=== PATIENT | female | born 1935 | race Caucasian/White ===

== ENCOUNTER 2017-03-24 10:53 | Inpatient (IN) | payer OTHER, MEDICARE ==
[2017-03-24] VITALS (13 sets, daily range): BP systolic 110–191; BP diastolic 54–81; PULSE 63–174; RESP 12–28; TEMP 97.9–98.7; O2SAT 95–99
[~2017-03-24] VITALS: Ht 165.1 cm; Wt 63.9 kg
[~2017-03-24 10:53] MED LIST: AMLO5TAB96 PO; FISH1000 PO; FLUTI44I INH; GABA300C3 PO; HYDR-2768 PO; LEVA250T14 PO; LEVO75TA3 PO; NADO80TA PO; POTA10IN2 PO
[2017-03-24] MEDS ORDERED: SODIUM CHLOR 0.9% 1000 ML INJ 1,000 ML IV ONE (11:00)
[2017-03-24] MEDS ORDERED: SODIUM CHLORIDE 0.9% FLUSH 10 ML FLUSH IVF PRN (11:00)
--- NOTE | 2017-03-24 11:09 | PD ---
HPI Chief Complaint: Syncope/Near-Syncope Time Seen by Provider: 11:00 Travel History International Travel<30 days: No Contact w/Intl Traveler<30days: No Traveled to known affect area: No History of Present Illness HPI The patient is a 82-year-old female who presents to the emergency department via EMS from the [place] after a syncopal episode and for possible STEMI. EMS called a STEMI in the field because the patient had a left bundle branch block. The patient apparently was at work earlier today, working as a cashier receptionist, when she suddenly froze and he fell to the ground. EMS states the patient apparently had an LOC of 30 seconds. When she awakened she was slightly confused but recovered quickly. The patient does not recall the events , does complain of a mild headache where she struck her head. She denies any neck pain, chest pain, shortness of breath, nausea, vomiting, or focal deficits. The patient cannot recall the name of her primary physician. She denies any known history of CAD and denies any previous MD. She is unsure if she has a history of left bundle-branch block. Symptoms are moderate, there are no current alleviating or exacerbating factors. PFSH Past Medical History Arthritis: Yes Asthma: Yes (MILD) Autoimmune Disease: No Anxiety: No Depression: No Heart Rhythm Problems: Yes (TRANSIENT TACHY) Cancer: Yes (JOCELIN. BREAST) Cardiovascular Problems: Yes Chemotherapy: Yes COPD: Yes Diabetes: No Diminished Hearing: No Endocrine: Yes GERD: Yes (MILD) Glaucoma: No Genitourinary: Yes (CURRENT UTI) Hypertension: Yes Immune Disorder: No Musculoskeletal: Yes Neurologic: Yes Psychiatric: No Respiratory: Yes Immunizations Current: Yes Radiation Therapy: Yes (25X 1987, 35X 1995) Thyroid Disease: Yes Past Surgical History Body Medical Devices: HARDWARE RIGHT FEMUR, HIP Pacemaker: No Social History Alcohol Use: Yes (1GLASS WINE Q 3 MONTHS ) Tobacco Use: No Substance Use: No Allergies-Medications (Allergen,Severity, Reaction): Coded Allergies: adhesive (Unverified Allergy, Severe, 03/24/17) enalaprilat (Unverified Allergy, Severe, PERIORAL SWELLING, 03/24/17) latex (Unverified Allergy, Severe, RASH, 03/24/17) codeine (Unverified Allergy, Mild, NAUSEA/VOMITING, PER PT, 03/24/17) etodolac (Unverified Allergy, Unknown, 03/24/17) Reported Meds & Prescriptions Reported Meds & Active Scripts Active Reported Zocor (Simvastatin) 20 Mg Tab 20 Mg PO DAILY Baclofen 10 Mg Tab 10 Mg PO BID Cozaar (Losartan Potassium) 100 Mg Tab 100 Mg PO DAILY Synthroid (Levothyroxine Sodium) 50 Mcg Tab 50 Mcg PO DAILY Norvasc (Amlodipine Besylate) 10 Mg Tab 10 Mg PO DAILY Review of Systems Except as stated in HPI: all other systems reviewed are Neg General / Constitutional: No: Fever HENT: Positive: Headaches, No: Lightheadedness, Neck Pain Cardiovascular: Positive: Syncope, No: Chest Pain or Discomfort Respiratory: No: Shortness of Breath Gastrointestinal: No: Nausea, Vomiting, Abdominal Pain Musculoskeletal: No: Weakness Neurologic: Positive: Syncope, No: Dizziness Physical Exam Narrative GENERAL: Awake, alert, pleasant 82-year-old female who appears her stated age and is in no acute respiratory distress. SKIN: Focused skin assessment warm/dry. Laceration to the right occipital region. HEAD: The patient has a laceration to the right occipital region. EYES: Pupils equal and round. 3 mm bilateral and reactive. ENT: No nasal bleeding or discharge. Mucous membranes pink and moist. NECK: Trachea midline. No JVD. Cervical collar in place. CARDIOVASCULAR: Regular rate and rhythm. No murmur appreciated. Heart rate in the 80s. RESPIRATORY: No accessory muscle use. Clear to auscultation. Breath sounds equal bilaterally. GASTROINTESTINAL: Abdomen soft, non-tender, nondistended. No rebound tenderness. MUSCULOSKELETAL: No obvious deformities. No clubbing. No cyanosis. No edema. Moves all 4 extremities without difficulty. NEUROLOGICAL: Awake and alert. No obvious cranial nerve deficits. Motor grossly within normal limits. Normal speech. Nonfocal. Oriented 4. Follows commands without difficulty. Back: No tenderness over the thoracic lumbar vertebrae. PSYCHIATRIC: Appropriate mood and affect; insight and judgment normal. Data Data Last Documented VS Vital Signs Date Time Temp Pulse Resp B/P (MAP) Pulse Ox O2 Delivery O2 Flow Rate FiO2 03/24/17 11:19 72 16 173/74 (107) 71 22 171/74 (106) 03/24/17 11:12 98 Nasal Cannula 2.00 03/24/17 10:57 97.9 Orders Orders Electrocardiogram (03/24/17 11:00) Complete Blood Count With Diff (03/24/17 11:00) Comprehensive Metabolic Panel (03/24/17 11:00) Magnesium (Mg) (03/24/17 11:00) Ckmb (Isoenzyme) Profile (03/24/17 11:00) Troponin I (03/24/17 11:00) Chest, Single Ap (03/24/17 11:00) Ct Brain W/O Iv Contrast(Rout) (03/24/17 11:00) Ct Cerv Spine W/O Contrast (03/24/17 11:00) Ecg Monitoring (03/24/17 11:00) Iv Access Insert/Monitor (03/24/17 11:00) Oximetry (03/24/17 11:00) Sodium Chloride 0.9% Flush (Ns Flush) (03/24/17 11:00) Sodium Chlor 0.9% 1000 Ml Inj (Ns 1000 M (03/24/17 11:00) Orthostatic Vital Signs (03/24/17 11:00) CKMB (03/24/17 11:05) CKMB% (03/24/17 11:05) Labs Laboratory Tests Test 03/24/17 11:05 White Blood Count 9.0 TH/MM3 Red Blood Count 4.00 MIL/MM3 Hemoglobin 13.5 GM/DL Hematocrit 38.5 % Mean Corpuscular Volume 96.3 FL Mean Corpuscular Hemoglobin 33.7 PG Mean Corpuscular Hemoglobin Concent 35.0 % Red Cell Distribution Width 13.5 % Platelet Count 284 TH/MM3 Mean Platelet Volume 8.3 FL Neutrophils (%) (Auto) 66.3 % Lymphocytes (%) (Auto) 23.6 % Monocytes (%) (Auto) 7.9 % Eosinophils (%) (Auto) 1.5 % Basophils (%) (Auto) 0.7 % Neutrophils # (Auto) 6.0 TH/MM3 Lymphocytes # (Auto) 2.1 TH/MM3 Monocytes # (Auto) 0.7 TH/MM3 Eosinophils # (Auto) 0.1 TH/MM3 Basophils # (Auto) 0.1 TH/MM3 CBC Comment DIFF FINAL Differential Comment Blood Urea Nitrogen 20 MG/DL Creatinine 0.84 MG/DL Random Glucose 108 MG/DL Total Protein 7.3 GM/DL Albumin 3.4 GM/DL Calcium Level 8.4 MG/DL Magnesium Level 1.6 MG/DL Alkaline Phosphatase 63 U/L Aspartate Amino Transf (AST/SGOT) 25 U/L Alanine Aminotransferase (ALT/SGPT) 23 U/L Total Bilirubin 0.3 MG/DL Sodium Level 139 MEQ/L Potassium Level 3.7 MEQ/L Chloride Level 106 MEQ/L Carbon Dioxide Level 24.2 MEQ/L Anion Gap 9 MEQ/L Estimat Glomerular Filtration Rate 65 ML/MIN Total Creatine Kinase 198 U/L Creatine Kinase MB 4.5 NG/ML Creatine Kinase MB % 2.3 % Troponin I LESS THAN 0.02 NG/ML MDM Medical Decision Making Medical Screen Exam Complete: Yes Emergency Medical Condition: Yes Medical Record Reviewed: Yes Interpretation(s) EKG reveals normal sinus rhythm with a rate of 78. Left bundle-branch block. Last Impressions Head CT 03/24/17 1100 Signed Impressions: Service Date/Time: Friday, March 24, 2017 11:40 - CONCLUSION: 1. No acute intracranial abnormality identified. 2. Hematoma within the scalp posteriorly on the right. Chris Christopher MD Chest X-Ray 03/24/17 1100 Signed Impressions: Service Date/Time: Friday, March 24, 2017 11:07 - CONCLUSION: 1. Minimal left lung base atelectasis. 2. Prominence of the right perihilar region likely due to tortuous thoracic aorta. Jer Lay MD CT the cervical spine reveals no acute fracture or prevertebral soft tissue swelling. Minimal spinal stenosis at C4 5 and C6 7. Severe left neural foraminal narrowing a moderate right neural foraminal narrowing at C4 5. Moderate bilateral neural foraminal nares C6 7. Moderate left neural foraminal narrowing at C5 6. Laboratory Tests Test 03/24/17 11:05 White Blood Count 9.0 TH/MM3 Red Blood Count 4.00 MIL/MM3 Hemoglobin 13.5 GM/DL Hematocrit 38.5 % Mean Corpuscular Volume 96.3 FL Mean Corpuscular Hemoglobin 33.7 PG Mean Corpuscular Hemoglobin Concent 35.0 % Red Cell Distribution Width 13.5 % Platelet Count 284 TH/MM3 Mean Platelet Volume 8.3 FL Neutrophils (%) (Auto) 66.3 % Lymphocytes (%) (Auto) 23.6 % Monocytes (%) (Auto) 7.9 % Eosinophils (%) (Auto) 1.5 % Basophils (%) (Auto) 0.7 % Neutrophils # (Auto) 6.0 TH/MM3 Lymphocytes # (Auto) 2.1 TH/MM3 Monocytes # (Auto) 0.7 TH/MM3 Eosinophils # (Auto) 0.1 TH/MM3 Basophils # (Auto) 0.1 TH/MM3 CBC Comment DIFF FINAL Differential Comment Blood Urea Nitrogen 20 MG/DL Creatinine 0.84 MG/DL Random Glucose 108 MG/DL Total Protein 7.3 GM/DL Albumin 3.4 GM/DL Calcium Level 8.4 MG/DL Magnesium Level 1.6 MG/DL Alkaline Phosphatase 63 U/L Aspartate Amino Transf (AST/SGOT) 25 U/L Alanine Aminotransferase (ALT/SGPT) 23 U/L Total Bilirubin 0.3 MG/DL Sodium Level 139 MEQ/L Potassium Level 3.7 MEQ/L Chloride Level 106 MEQ/L Carbon Dioxide Level 24.2 MEQ/L Anion Gap 9 MEQ/L Estimat Glomerular Filtration Rate 65 ML/MIN Total Creatine Kinase 198 U/L Creatine Kinase MB 4.5 NG/ML Creatine Kinase MB % 2.3 % Troponin I LESS THAN 0.02 NG/ML Differential Diagnosis Differential diagnosis includes syncope, arrhythmia, electrolyte abnormality, closed head injury, intracranial hemorrhage, cervical fracture, STEMI, pulmonary embolism. Narrative Course IV was established, labs are drawn and sent, and the patient was placed on cardiac telemetry monitoring and continuous pulse oximetry monitoring. EKG was ordered and interpreted. EKG does reveal left bundle-branch block, however, the patient has no acute chest pain or shortness of breath, I doubt STEMI. The patient does appear to have had a syncopal episode. Therefore, CT the brain and cervical spine were ordered. The patient was monitored on cardiac telemetry monitoring. The patient's labs are unremarkable. Chest x-ray, CT of the brain, and CT the cervical spine reveal a hematoma but no intracranial hemorrhage or cervical fracture. Orthostatic vital signs are unremarkable. The patient appeared to have a true syncopal episode, was reevaluated at 12:37 PM. The patient was in a sinus rhythm with unifocal PVCs. The patient states she has a history of tachycardia as a child but denies any previous history of syncope. She has been seen by cardiology in the past for a "plaque in the heart ", however, has never had prior stenting. The patient appears to have had a true syncopal episode with the trauma on the back of the head versus possible seizure. Therefore, the patient be 23 hour observation, may benefit from telemetry monitoring and echocardiogram. The patient has [employer], therefore [facility]. I discussed the patient Dr. Orellana who agrees with 23 hour observation. He requested that I call the patient's broth mixer, Dr. Alvarez. I discussed the patient with Dr. Alvarez 1:40 PM who states the patient does have a history of left bundle-branch block in the past and has had multiple previous near syncopal episodes, they were discussing a possible loop recorder. Physician Communication Physician Communication The patient has [employer], therefore, [facility]. Diagnosis Primary Impression: Syncope Qualified Codes: R55 - Syncope and collapse Admitting Information Admitting Physician Requests: Observation Condition: Stable Kamran Holden MD Mar 24, 2017 11:09
--- NOTE | 2017-03-24 11:28 | RADRPT ---
EXAM DATE/TIME: 03/24/2017 11:07 [facility] COMPARISON: No previous studies available for comparison. INDICATIONS : Syncope. MEDICAL HISTORY : hx of bronchitis, pneumonia, tachycardia SURGICAL HISTORY : bilateral breast cancer. lumpectomy right breast and mastectomy left breast. ENCOUNTER: Initial ACUITY: 1 day PAIN SCORE: 0/10 LOCATION: Bilateral chest FINDINGS: Minimal linear parenchymal opacities at the left lung base. Slight prominence of the right perihilar region which may be due to tortuous thoracic aorta. Cardiac silhouette is within normal limits. Right shoulder arthroplasty in place. Bony thorax is grossly intact. CONCLUSION: 1. Minimal left lung base atelectasis. 2. Prominence of the right perihilar region likely due to tortuous thoracic aorta. Jer Lay MD on March 24, 2017 at 11:25 Board Certified Radiologist. This report was verified electronically.
[2017-03-24 11:37] LABS: BASOPHIL # 0.1 TH/MM3 (0-0.2); BASOPHIL % 0.7 % (0.0-2.0); EOSINOPHIL # 0.1 TH/MM3 (0-0.4); EOSINOPHIL % 1.5 % (0.0-4.0); HEMATOCRIT 38.5 % (35.0-46.0); HEMO FLAGS DIFF FINAL; LYMPH % 23.6 % (9.0-44.0); LYMPHOCYTE # 2.1 TH/MM3 (1.0-4.8); MEAN CELL VOLUME 96.3 FL (80.0-100.0); MEAN CORPUSCULAR HEMOGLOBIN 33.7 PG (27.0-34.0); MONO % 7.9 % (0.0-8.0); NEUT % 66.3 % (16.0-70.0); PLATELET COUNT 284 TH/MM3 (150-450); RED CELL DISTRIBUTION WIDTH 13.5 % (11.6-17.2)
[2017-03-24] MEDS ORDERED: LEVO.05 PO (11:47)
[2017-03-24] MEDS ORDERED: BACL10TA PO (11:47)
[2017-03-24] MEDS ORDERED: COZA100T PO (11:47)
[2017-03-24] MEDS ORDERED: AMLO10 PO (11:47)
[2017-03-24] MEDS ORDERED: ZOCO20TA PO (11:47)
[2017-03-24 11:59] LABS: ALKALINE PHOSPHATASE 63 U/L (45-117); CREATINE KINASE 198 U/L (26-192); TOTAL BILIRUBIN ADULT 0.3 MG/DL (0.2-1.0)
[2017-03-24 12:04] LABS: ALT (GPT) 23 U/L (10-53); ANION GAP 9 MEQ/L (5-15); AST (GOT) 25 U/L (15-37); BICARBONATE 24.2 MEQ/L (21.0-32.0); BLOOD UREA NITROGEN 20 MG/DL (7-18); CHLORIDE 106 MEQ/L (98-107); GLOMERULAR FILTRATION RATE 65 ML/MIN (>89); MAGNESIUM 1.6 MG/DL (1.5-2.5); POTASSIUM 3.7 MEQ/L (3.5-5.1); SODIUM (NA) 139 MEQ/L (136-145)
--- NOTE | 2017-03-24 12:05 | RADRPT ---
EXAM DATE/TIME: 03/24/2017 11:40 [facility] COMPARISON: No previous studies available for comparison. INDICATIONS : Trauma, patient had a syncopal episode today. RADIATION DOSE: 35.30 CTDIvol (mGy) MEDICAL HISTORY : Cardiovascular disease. Hypertension. Carcinoma, breast.COPD SURGICAL HISTORY : None. ENCOUNTER: Initial ACUITY: 1 day PAIN SCALE: 8/10 LOCATION: cranial TECHNIQUE: Multiple contiguous axial images were obtained of the head. Using automated exposure control and adj ustment of the mA and/or kV according to patient size, radiation dose was kept as low as reasonably a chievable to obtain optimal diagnostic quality images. DICOM format image data is available electro nically for review and comparison. FINDINGS: CEREBRUM: The ventricles are normal for age. No evidence of midline shift, mass lesion, hemorrhage or acute in farction. No extra-axial fluid collections are seen. POSTERIOR FOSSA: The cerebellum and brainstem are intact. The 4th ventricle is midline. The cerebellopontine angle i s unremarkable. EXTRACRANIAL: The visualized portion of the orbits is intact. SKULL: The calvaria is intact. No evidence of skull fracture. The exam does demonstrate hematoma within the scalp along the right posterior parietal region. CONCLUSION: 1. No acute intracranial abnormality identified. 2. Hematoma within the scalp posteriorly on the right. Chris Christopher MD on March 24, 2017 at 12:01 Board Certified Radiologist. This report was verified electronically.
[2017-03-24 12:12] LABS: CKMB 4.5 NG/ML (0.5-3.6)
--- NOTE | 2017-03-24 12:30 | RADRPT ---
EXAM DATE/TIME: 03/24/2017 11:40 [facility] COMPARISON: No previous studies available for comparison. INDICATIONS : Trauma, patient had a syncopal episode today. Patient hit head. RADIATION DOSE: 17.45 CTDIvol (mGy) MEDICAL HISTORY : Cardiovascular disease. Hypertension. Carcinoma, breast. SURGICAL HISTORY : None. ENCOUNTER: Initial ACUITY: 1 day PAIN SCALE: 8/10 LOCATION: neck TECHNIQUE: Volumetric scanning of the cervical spine was performed. Multiplanar reconstructions in the sagittal, coronal and oblique axial planes were performed. Using automated exposure control and adjustment o f the mA and/or kV according to patient size, radiation dose was kept as low as reasonably achievable to obtain optimal diagnostic quality images. DICOM format image data is available electronically f or review and comparison. FINDINGS: No acute fracture or prevertebral soft tissue swelling is noted. Cervical spondylosis is noted from C 2-C7. Severe left neuroforaminal narrowing and moderate right neuroforaminal narrowing is noted at C4 -5. Moderate bilateral foraminal narrowing is noted at C6-7. Moderate left neuroforaminal narrowing i s noted at C5-6. Minimal spinal stenosis is noted at C4-5 and C6-7. The bony relationship and alignme nt between C1 and C2 is well maintained. CONCLUSION: 1. No acute fracture or prevertebral soft tissue swelling. 2. Minimal spinal stenosis at C4-5 and C6-7. 3. Severe left neuroforaminal narrowing and moderate right neuroforaminal narrowing at C4-5. 4. Moderate bilateral neuroforaminal narrowing at C6-7. 5. Moderate left neuroforaminal narrowing at C5-6. Fer Damico MD on March 24, 2017 at 12:21 Board Certified Radiologist. This report was verified electronically.
[2017-03-24] MEDS ORDERED: MAGNESIUM HYDROXIDE SUSP 30 ML CUP PO PRN (15:15)
[2017-03-24] MEDS ORDERED: SENNOSIDES 8.6 MG TAB PO PRN (15:15)
[2017-03-24] MEDS ORDERED: NALOXONE HCL 0.4 MG/ML AMP IV PUSH PRN (15:15)
[2017-03-24] MEDS ORDERED: ACETAMINOPHEN 325 MG TAB PO PRN (15:15)
[2017-03-24] MEDS ORDERED: ONDANSETRON HCL 4 MG/2 ML VIAL IVP PRN (15:15)
[2017-03-24] MEDS ORDERED: BISACODYL 10 MG SUPP RECTAL PRN (15:15)
[2017-03-24] MEDS ORDERED: LACTULOSE SYRUP 20 GM/30 ML CUP PO PRN (15:15)
[2017-03-24] MEDS ORDERED: ADENOSINE IV SOLN 3 MG/ML 2 ML VIAL ONE (15:24)
[2017-03-24] MEDS ORDERED: ADENOSINE IV SOLN 3 MG/ML 2 ML VIAL IV PUSH ONE (15:30)
--- NOTE | 2017-03-24 15:56 | HHI.HP ---
HPI Service [facility] Hospitalists Primary Care Physician Unknown Admission Diagnosis syncope, laceration scalp, closed head injury Diagnoses: Chief Complaint: Syncope Head injury Travel History International Travel<30 Days: No Contact w/Intl Traveler <30 Da: No Traveled to Known Affected Are: No History of Present Illness Written by Violette Marin, acting as scribe for Dr. Orellana on 03/24/17 at 15: 55. 82yo female with PMHX of hypertension, asthma, GERD, hypothyroidism, HLD and breast cancer who presents to [facility] ED with complaints of syncope. 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 EMS states the patient apparently had loss of consciousness for 30 seconds. When she awakened , patient had some confusion but quickly recovered. Patient denies any previous history of coronary artery disease or previous OH. She denies any previous seizure history. Per the ED note, STEMI was called in the field due to EKG findings of LBBB. ED physician contacted patient's shrink pit operator Dr. Alvarez who stated that the EKG changes were not new and the patient's had multiple syncopal episodes in the past. They have been discussing a possible loop recorder. While in the ED, patient developed supraventricular tachycardia that was felt to be less likely due to ventricular tachycardia. Patient will be admitted to [facility]. Review of Systems Except as stated in HPI: all other systems reviewed are Neg Past Family Social History Past Medical History HTN Dyslipidemia Hypothyroidism GERD Asthma Breast cancer Right femur fracture Right rotator cuff tear Osteoarthritis Osteoporosis Past Surgical History Intramedullary allison fixation of the right femur in 2008 Right breast lumpectomy in 1979 left breast lumpectomy in 1995 Right shoulder arthroplasty Reported Medications Zocor (Simvastatin) 20 Mg Tab 20 Mg PO DAILY Baclofen 10 Mg Tab 10 Mg PO BID Cozaar (Losartan Potassium) 100 Mg Tab 100 Mg PO DAILY Synthroid (Levothyroxine Sodium) 50 Mcg Tab 50 Mcg PO DAILY Norvasc (Amlodipine Besylate) 10 Mg Tab 10 Mg PO DAILY Allergies: Coded Allergies: adhesive (Unverified Allergy, Severe, 03/24/17) enalaprilat (Unverified Allergy, Severe, PERIORAL SWELLING, 03/24/17) latex (Unverified Allergy, Severe, RASH, 03/24/17) codeine (Unverified Allergy, Mild, NAUSEA/VOMITING, PER PT, 03/24/17) etodolac (Unverified Allergy, Unknown, 03/24/17) Active Ordered Medications Current Medications Medications (Trade) Dose Ordered Sig/Juan Pablo Route Start Time Stop Time Status Last Admin (NS Flush) 2 ml UNSCH PRN IVF 03/24/17 11:00 03/24/17 11:28 Sodium Chloride 1,000 ml @ 100 mls/hr Q10H ONCE IV 03/24/17 11:00 03/24/17 20:59 03/24/17 11:28 (Tylenol) 650 mg Q4H PRN PO 03/24/17 15:15 (Zofran Inj) 4 mg Q6H PRN IVP 03/24/17 15:15 (Heparin Inj) 5,000 units Q8H SQ 03/24/17 16:00 (Narcan Inj) 0.4 mg UNSCH PRN IV PUSH 03/24/17 15:15 (Delfina-Colace) 1 tab BID PO 03/24/17 21:00 (Milk Of Magnesia Liq) 30 ml Q12H PRN PO 03/24/17 15:15 (Senokot) 17.2 mg Q12H PRN PO 03/24/17 15:15 (Dulcolax Supp) 10 mg DAILY PRN RECTAL 03/24/17 15:15 (Lactulose Liq) 30 ml DAILY PRN PO 03/24/17 15:15 Family History Family medical history significant for coronary artery disease Social History Patient denies any tobacco use, alcohol use or illicit drug use. Physical Exam Vital Signs Vital Signs Date Time Temp Pulse Resp B/P (MAP) Pulse Ox O2 Delivery O2 Flow Rate FiO2 03/24/17 15:27 77 26 134/63 (86) 97 Nasal Cannula 2.00 03/24/17 15:16 174 22 110/56 (74) 97 Nasal Cannula 2.00 03/24/17 13:42 71 12 130/61 (84) 99 Room Air 03/24/17 11:19 72 16 173/74 (107) 71 22 171/74 (106) 03/24/17 11:12 70 16 167/70 (102) 98 Nasal Cannula 2.00 03/24/17 11:02 Nasal Cannula 2.00 03/24/17 10:57 97.9 191/81 (117) Physical Exam GENERAL: This is a well-nourished, well-developed patient, in no apparent distress. SKIN: No rashes, ecchymoses or lesions. Cool and dry. HEAD: Atraumatic. Normocephalic. No temporal or scalp tenderness. EYES: Pupils equal round and reactive. Extraocular motions intact. No scleral icterus. No injection or drainage. ENT: Nose without bleeding, purulent drainage or septal hematoma. Throat without erythema, tonsillar hypertrophy or exudate. Uvula midline. Airway patent. NECK: Trachea midline. No JVD or lymphadenopathy. Supple, nontender, no meningeal signs. CARDIOVASCULAR: Bradycardic with multiple ectopy. 3/6 systolic murmur noted. RESPIRATORY: Clear to auscultation. Breath sounds equal bilaterally. No wheezes , rales, or rhonchi. GASTROINTESTINAL: Abdomen soft, non-tender, nondistended. No hepato-splenomegaly , or palpable masses. No guarding. MUSCULOSKELETAL: Extremities without clubbing, cyanosis, or edema. No joint tenderness, effusion, or edema noted. No calf tenderness. Negative Homans sign bilaterally. NEUROLOGICAL: Awake and alert. Cranial nerves II through XII intact. Motor and sensory grossly within normal limits. Five out of 5 muscle strength in all muscle groups. Normal speech. Laboratory Laboratory Tests Test 03/24/17 11:05 White Blood Count 9.0 Red Blood Count 4.00 Hemoglobin 13.5 Hematocrit 38.5 Mean Corpuscular Volume 96.3 Mean Corpuscular Hemoglobin 33.7 Mean Corpuscular Hemoglobin Concent 35.0 Red Cell Distribution Width 13.5 Platelet Count 284 Mean Platelet Volume 8.3 Neutrophils (%) (Auto) 66.3 Lymphocytes (%) (Auto) 23.6 Monocytes (%) (Auto) 7.9 Eosinophils (%) (Auto) 1.5 Basophils (%) (Auto) 0.7 Neutrophils # (Auto) 6.0 Lymphocytes # (Auto) 2.1 Monocytes # (Auto) 0.7 Eosinophils # (Auto) 0.1 Basophils # (Auto) 0.1 CBC Comment DIFF FINAL Differential Comment Blood Urea Nitrogen 20 Creatinine 0.84 Random Glucose 108 Total Protein 7.3 Albumin 3.4 Calcium Level 8.4 Magnesium Level 1.6 Alkaline Phosphatase 63 Aspartate Amino Transf (AST/SGOT) 25 Alanine Aminotransferase (ALT/SGPT) 23 Total Bilirubin 0.3 Sodium Level 139 Potassium Level 3.7 Chloride Level 106 Carbon Dioxide Level 24.2 Anion Gap 9 Estimat Glomerular Filtration Rate 65 Total Creatine Kinase 198 Creatine Kinase MB 4.5 Creatine Kinase MB % 2.3 Troponin I LESS THAN 0.02 Result Diagram: 03/24/17 1105 03/24/17 1105 Imaging Last Impressions Head CT 03/24/17 1100 Signed Impressions: Service Date/Time: Friday, March 24, 2017 11:40 - CONCLUSION: 1. No acute intracranial abnormality identified. 2. Hematoma within the scalp posteriorly on the right. Chris Christopher MD Chest X-Ray 03/24/17 1100 Signed Impressions: Service Date/Time: Friday, March 24, 2017 11:07 - CONCLUSION: 1. Minimal left lung base atelectasis. 2. Prominence of the right perihilar region likely due to tortuous thoracic aorta. Jer Lay MD Cervical Spine CT 03/24/17 1100 Signed Impressions: Service Date/Time: Friday, March 24, 2017 11:40 - CONCLUSION: 1. No acute fracture or prevertebral soft tissue swelling. 2. Minimal spinal stenosis at C4-5 and C6-7. 3. Severe left neuroforaminal narrowing and moderate right neuroforaminal narrowing at C4-5. 4. Moderate bilateral neuroforaminal narrowing at C6-7. 5. Moderate left neuroforaminal narrowing at C5-6. Fer Damico MD Caprini VTE Risk Assessment Caprini VTE Risk Assessment: Mod/High Risk (score >= 2) Caprini Risk Assessment Model Point Value = 1 Point Value = 2 Point Value = 3 Point Value = 5 Age 41-60 Minor surgery BMI > 25 kg/m2 Swollen legs Varicose veins or History of unexplained or recurrent spontaneous Oral contraceptives or hormone replacement Sepsis (< 1 month) Serious lung disease, including pneumonia (< 1 month) Abnormal pulmonary function Acute myocardial infarction Congestive heart failure (< 1 month) History of inflammatory bowel disease Medical patient at bed rest Age 61-74 Arthroscopic surgery Major open surgery (> 45 min) Laparoscopic surgery (> 45 min) Malignancy Confined to bed (> 72 hours) Immobilizing plaster cast Central venous access Age >= 75 History of VTE Family history of VTE Factor V Leiden Prothrombin [id number] Lupus anticoagulant Anticardiolipin antibodies Elevated serum homocysteine Heparin-induced thrombocytopenia Other congenital or acquired thrombophilia Stroke (< 1 month) Elective arthroplasty Hip, pelvis, or leg fracture Acute spinal cord injury (< 1 month) Prophylaxis Regimen Total Risk Factor Score Risk Level Prophylaxis Regimen 0-1 Low Early ambulation 2 Moderate Order ONE of the following: *Sequential Compression Device (SCD) *Heparin 5000 units SQ BID 3-4 Higher Order ONE of the following medications: *Heparin 5000 units SQ TID *Enoxaparin/Lovenox 40 mg SQ daily (WT < 150 kg, CrCl > 30 mL/min) *Enoxaparin/Lovenox 30 mg SQ daily (WT < 150 kg, CrCl > 10-29 mL/min) *Enoxaparin/Lovenox 30 mg SQ BID (WT < 150 kg, CrCl > 30 mL/min) AND/OR *Sequential Compression Device (SCD) 5 or more Highest Order ONE of the following medications: *Heparin 5000 units SQ TID (Preferred with Epidurals) *Enoxaparin/Lovenox 40 mg SQ daily (WT < 150 kg, CrCl > 30 mL/min) *Enoxaparin/Lovenox 30 mg SQ daily (WT < 150 kg, CrCl > 10-29 mL/min) *Enoxaparin/Lovenox 30 mg SQ BID (WT < 150 kg, CrCl > 30 mL/min) AND *Sequential Compression Device (SCD) Assessment and Plan Assessment and Plan 82yo female with PMHX of hypertension, asthma, GERD, hypothyroidism, HLD and breast cancer who presents to [facility] ED with complaints of syncope. Syncopal episode Tachyarrhythmia - Patient has a history of left bundle branch block with multiple syncopal episodes in the past per her shrink pit operator Dr. Alvarez - While in the ED, patient developed supraventricular tachycardia with left bundle branch block felt less likely to be due to ventricular tachycardia, rhythm strip personally reviewed. Patient will be admitted to [facility] for close monitoring and she may require adenosine or amiodarone. - Consult Dr. Alvarez, d/w her personally - Orthostatics negative - Initial troponin 0.02, continue to trend cardiac enzymes - fall precautions Head laceration secondary to injury as a result of fall from syncopal episode s/p closure of laceration in the ED - CT head shows no acute intracranial abnormality, hematoma within the scalp posterior leg on the right, images personally reviewed - CT cervical spine shows no acute fracture or perivertebral soft tissue swelling, degenerative changes noted throughout the cervical spine, images personally reviewed - Monitor wound for proper healing - neuro checks Hypertension - Resume patient's home dose of Norvasc 10 mg daily and Cozaar 100 mg daily - Continue to monitor blood pressure Hypothyroidism - Resume patient's home dose of Synthroid 50 g daily - obtain TSH level Dyslipidemia - Resume patient's home dose of statin therapy Asthma - Not in acute exacerbation - Monitor respiratory status - DuoNeb's as needed DVT prophylaxis - Bilateral SCD/MANJULA hose - Heparin sq Discussed Condition With Patient, son, ED physician This note was transcribed by scribe [ Violette Marin ]. I, Dr. Doreen Orellana personally performed the history, physical exam, and medical decision making; and confirmed the accuracy of the information in the transcribed note. Authenticated by Dr. Doreen Orellana on 03/24/17 at 16:12. . Addendum: Patient had another episode of SVT, she was given adenosine which broke it back to sinus rhythm in the 90s,D/W cardiology recommended beta tad at this point Physician Certification 2 Midnight Certification Type: Admission for Inpatient Services Order for Inpatient Services The services are ordered in accordance with Medicare regulations or non- Medicare payer requirements, as applicable. In the case of services not specified as inpatient-only, they are appropriately provided as inpatient services in accordance with the 2-midnight benchmark. Estimated LOS (days): 3 days is the estimated time the patient will need to remain in the hospital, assuming treatment plan goals are met and no additional complications. Post-Hospital Plan: Not yet determined Violette Marin Mar 24, 2017 15:56 Doreen Orellana MD Mar 24, 2017 17:25
[2017-03-24] MEDS ORDERED: METOPROLOL TARTRATE 25 MG TAB PO ONE (16:45)
[2017-03-24] MEDS: HEPARIN SODIUM - SQ 10,000 UNITS/ML VIAL SQ SCH ×2 (16:51→23:05)
[2017-03-24 17:11] LABS: CKMB 5.3 NG/ML (0.5-3.6)
--- NOTE | 2017-03-24 18:55 | EKG ---
Date Performed: 03/24/2017 Time Performed: 10:58:13 PTAGE: 82 years EKG: Dual chamber pacing, VENTRICULAR PREMATURE COMPLEXES LEFT BUNDLE BRANCH BLOCK When compared to previous tracing, pacing is new. ABNORMAL ECG PREVIOUS TRACING : 08/01/2008 23.15.42 DOCTOR: Vinh López Interpretating Date/Time 03/24/2017 18:54:53
[2017-03-24] MEDS: DOCUSATE SODIUM 50 MG/SENNA 8.6 MG TAB PO SCH (21:00)
[2017-03-25] VITALS (16 sets, daily range): BP systolic 118–157; BP diastolic 57–77; PULSE 57–84; RESP 16–18; TEMP 97.8–98.2; O2SAT 97–99
[2017-03-25] MEDS ORDERED: AMIODARONE 150 MG/D5W 97 ML BOLUS 10 MINUTES IV ONE ×2 (01:15)
[2017-03-25] MEDS: AMIODARONE INJ 450 MG in D5W (EXCEL BAG) INJ 241 ML IV PRN ×3 (01:52→11:57)
[2017-03-25] MEDS: HEPARIN SODIUM - SQ 10,000 UNITS/ML VIAL SQ SCH ×3 (08:09→22:29)
[2017-03-25] MEDS: DOCUSATE SODIUM 50 MG/SENNA 8.6 MG TAB PO SCH ×2 (08:09→21:30)
[2017-03-25 08:50] LABS: AUTOMATED NEUTROPHIL # 4.3 TH/MM3 (1.8-7.7); BASOPHIL % 0.5 % (0.0-2.0); EOSINOPHIL # 0.1 TH/MM3 (0-0.4); HEMATOCRIT 36.1 % (35.0-46.0); HEMO FLAGS DIFF FINAL; LYMPH % 26.9 % (9.0-44.0); LYMPHOCYTE # 1.9 TH/MM3 (1.0-4.8); MEAN CELL VOLUME 96.3 FL (80.0-100.0); MEAN CORPUSCULAR HEMOGLOBIN 33.8 PG (27.0-34.0); MEAN CORPUSCULAR HGB CONC 35.1 % (32.0-36.0); MONO % 9.4 % (0.0-8.0); NEUT % 61.2 % (16.0-70.0); PLATELET COUNT 264 TH/MM3 (150-450); RED BLOOD COUNT 3.75 MIL/MM3 (4.00-5.30); RED CELL DISTRIBUTION WIDTH 13.4 % (11.6-17.2)
[2017-03-25 08:57] LABS: INTERNATIONAL NORMALIZED RATIO 1.1 RATIO
[2017-03-25 09:13] LABS: BICARBONATE 22.5 MEQ/L (21.0-32.0); POTASSIUM 3.3 MEQ/L (3.5-5.1)
--- NOTE | 2017-03-25 15:11 | EKG ---
Date Performed: 03/25/2017 Time Performed: 01:14:10 PTAGE: 82 years EKG: Possible idioventricular rhythm with slow ventricular response Left axis deviation RBBB wit h left anterior fascicular block Possible septal infarct - age undetermined Tall T waves - consider a cute ischemia or hyperkalemia Abnormal ECG PREVIOUS TRACING : 03/24/2017 10.58 DOCTOR: Vinh López Interpretating Date/Time 03/25/2017 15:11:01
--- NOTE | 2017-03-25 16:09 | HHI.PR ---
Subjective Remarks Reports feeling better overall but is having occasional episodes of lightheadedness when walking. Wants to go home. Currently on Amiodarone drip Objective Vitals Vital Signs Date Time Temp Pulse Resp B/P (MAP) Pulse Ox O2 Delivery O2 Flow Rate FiO2 03/25/17 15:37 99 03/25/17 12:08 97.8 57 16 137/73 (94) 99 03/25/17 11:57 66 132/66 03/25/17 08:07 97.8 57 16 137/73 (94) 99 03/25/17 05:05 98.0 74 18 138/64 (88) 97 03/25/17 03:59 71 03/25/17 03:17 84 03/25/17 02:45 98.2 61 16 118/57 (77) 99 03/25/17 02:30 98.2 68 16 147/64 (91) 03/25/17 02:15 98.2 69 16 147/67 (93) 99 03/25/17 02:00 98.0 67 16 141/63 (89) 99 03/25/17 01:55 69 153/69 03/25/17 01:45 98.2 68 16 153/63 (93) 99 03/25/17 01:45 68 153/63 03/25/17 01:10 97 03/25/17 00:49 72 03/24/17 23:03 98.0 69 18 121/56 (77) 97 03/24/17 20:15 98.1 64 18 124/60 (81) 95 03/24/17 20:02 63 03/24/17 18:00 98.7 68 20 141/64 (89) 97 03/24/17 17:27 03/24/17 16:34 78 21 148/63 (91) 98 Nasal Cannula 2.00 I/O 03/24/17 03/24/17 03/24/17 03/25/17 03/25/17 03/25/17 07:00 15:00 23:00 07:00 15:00 23:00 Intake Total 1371 ml Output Total 200 ml Balance 1171 ml Intake Oral 480 ml IV Total 891 ml Output Urine Total 200 ml # Bowel Movements 1 Result Diagram: 03/25/1772203/25/17722 Objective Remarks GENERAL: This is a well-nourished, well-developed patient, in no apparent distress. CARDIOVASCULAR: Normal rate and regular rhythm without murmurs, gallops, or rubs. RESPIRATORY: Good respiratory efforts. Breath sounds equal and clear to auscultation bilaterally. GASTROINTESTINAL: Abdomen soft, non-tender, non-distended. Normal active bowel sounds MUSCULOSKELETAL: Extremities without cyanosis, or edema. NEURO: Alert & Oriented x4 to person, place, time, situation. Moves all ext x4 PSYCH: Appropriate mood and affect. A/P Assessment and Plan 82yo female with PMHX of hypertension, asthma, GERD, hypothyroidism, HLD and breast cancer who presents to [facility] ED with complaints of syncope. Syncopal episode Tachyarrhythmia - Patient has a history of left bundle branch block with multiple syncopal episodes in the past per her well blower Dr. Alvarez - While in the ED, patient developed supraventricular tachycardia with left bundle branch block felt less likely to be due to ventricular tachycardia, -Cardiology consulted. Patient started on amiodarone drip today. She endorsed some episodic episode of lightheadedness. - Orthostatics negative. Cardiac enzymes negative - fall precautions - Further plans per cardiology Head laceration secondary to injury as a result of fall from syncopal episode s/p closure of laceration in the ED - CT head shows no acute intracranial abnormality, hematoma within the scalp posterior leg on the right, images personally reviewed - CT cervical spine shows no acute fracture or perivertebral soft tissue swelling, degenerative changes noted throughout the cervical spine, images personally reviewed - Monitor wound for proper healing - neuro checks Hypertension -Continue patient's home dose of Norvasc 10 mg daily and Cozaar 100 mg daily - Continue to monitor blood pressure Hypothyroidism - Resume patient's home dose of Synthroid 50 g daily - obtain TSH level Hypokalemia: Mild - Replace and monitor Dyslipidemia - Resume patient's home dose of statin therapy Asthma - Not in acute exacerbation - Monitor respiratory status - DuoNeb's as needed DVT prophylaxis - Bilateral SCD/MANJULA hose - Heparin sq Discharge Planning Pending further recommendations from cardiology, may be ready for discharge in the next 24-48 hours if stable. Zulieka Wiley MD Mar 25, 2017 16:09
[2017-03-25] MEDS ORDERED: POTASSIUM CHLORIDE 10 MEQ CONTROLLED RELEASE TAB PO ONE (20:00)
[2017-03-26] VITALS (9 sets, daily range): BP systolic 123–159; BP diastolic 60–73; PULSE 54–76; RESP 16–20; TEMP 97.3–98.1; O2SAT 94–99
[2017-03-26] MEDS: AMIODARONE INJ 450 MG in D5W (EXCEL BAG) INJ 241 ML IV PRN ×2 (02:48→19:38)
[2017-03-26] MEDS: DOCUSATE SODIUM 50 MG/SENNA 8.6 MG TAB PO SCH (08:43)
[2017-03-26] MEDS: HEPARIN SODIUM - SQ 10,000 UNITS/ML VIAL SQ SCH ×2 (08:44→19:39)
[2017-03-26 08:50] LABS: BICARBONATE 22.1 MEQ/L (21.0-32.0); POTASSIUM 3.2 MEQ/L (3.5-5.1)
[2017-03-26] MEDS ORDERED: POTASSIUM CHLORIDE 10 MEQ CONTROLLED RELEASE TAB PO ONE (09:15)
[2017-03-26] MEDS ORDERED: VERAPAMIL HCL 5 MG/2 ML VIAL ONE (10:42)
[2017-03-26] MEDS ORDERED: HEPARIN SODIUM - IV 10,000 UNITS/10 ML VIAL ONE (10:42)
[2017-03-26] MEDS ORDERED: NITROGLYCERIN INJ 5 ML ONE (10:42)
[2017-03-26] MEDS ORDERED: MIDAZOLAM HCL 2 MG/2 ML VIAL ONE (10:43)
[2017-03-26] MEDS ORDERED: BUPIVACAINE HCL PF 0.5% 10 ML VIAL ONE (10:50)
[2017-03-26] MEDS ORDERED: ADENOSINE IV SOLN 3 MG/ML 2 ML VIAL ONE (11:01)
[2017-03-26] MEDS ORDERED: MISC INFORMATION XX ONE (11:30)
--- NOTE | 2017-03-26 11:30 | CATHPROC ---
[facility] HIS Report Study Information Study Number Admission Scheduled Start Study Start [id number] Mar 24 2017 4:02PM 03/26/2017 Mar 26 2017 10:21AM [facility] Service Cardiac Catheterization Admit Source Facility Department Emergency department [facility] Physician and Clinical Staff Initial Destin Fletcher Thread Markercelina Cervantes RN, Lucia Cope RN Recorder Sarita Vallecillo,RT(R) (BS) Scrub Ruth DawsonRT(R) Procedures Performed Procedure Location (Site) Vessel Name Coronary Angiograms LCA Left Coronary Coronary Angiograms RCA Right Coronary L Heart Cath Wire insertion Radial (right) Radial Art. Equipment Time Instructional Paraprofessional Description Size Mfg Part Number Used/Scraped TRANSDUCER, TRUWAVE [id number] 10:27 BARNES PENALOZA * Used W/STOCKCOCK *[id number] *[id number] WIRE, HYDROSTEER 150CM [id number] 10:56 DAIG[employer] 150CM Used ANGLED GLIDE *[id number] 10:27 [employer] PACK, CCL CUSTOM * Used *[id number] 10:27 [employer] SUPPORT, ARTERIAL ADULT 01495 *[id number] Used [id number] 11:05 MEDTR[employer] JL 4.0 DXTERITY CATHETER FR 5 Used *[id number] BAND, RADIAL COMPRESSION TR [id number] 11:15 [employer] MEDICAL 24CM Used SHORT 24 *[id number] 10:27 [employer] WIRE, EXCHANGE 260CM 3MMJ 260CM Used *[id number] 10:27 NAMIC MANIFOLD, 4 PORT * Used *[id number] 10:27 [employer]COMED OMNIPAQUE, 350 MG, 150ML 150ML [id number] Used [id number] 10:27 F[employer] BLANKET,WARM AIR CCL * Used *[id number] SHEATH, FR6 TRANSRADIAL RM*[id number] 10:27 [employer] MEDICAL FR 6 Used SLENDER 10CM *[id number] Equipment Model, Serial, Lot Number and Expiration Data Description Model Number Serial Number Lot Number Expiration Date JL 4.0 DXTERITY CATHETER [id number] 10-30-2019 History: Allergies Allergy Reaction codeine NAUSEA/VOMITING, PER PT adhesive etodolac enalaprilat PERIORAL SWELLING latex RASH History: Risk Factors Family History of Hypertension Dyslipidemia Previous DE Previous Heart Failure Premature CAD Yes Yes No No No Prior Valve Prior PCI Prior CABG Surgery No No No Cerebrovascular Peripheral Artery Chronic Lung On Dialysis Diabetes Disease Disease Disease No No No Yes No History: Symptoms/Diagnosis Selection Items Syncope History: Stress Tests Stress or Imaging Studies Performed No History: Other Current Smoker No Labs Hgb (g/dl) Hct (%) WBC (l/cumm) Platelets (thousands) 11.60-17.00 35.00-51.00 4.00-11.00 150.00-450.00 12.7 36.1 7 264 Glucose (mg/dl) BUN (mg/dl) Creatinine (mg/dl) BUN:Creatinine (1:x) 74.00-106.00 7.00-18.00 0.50-1.30 10.00-20.00 111 14 0.6 23.3 Na (meq/l) K (meq/l) 136.00-145.00 3.50-5.10 139 3.2 INR (PTT:PT) 0.90-1.10 1.1 Troponin I (ng/ml) CPK (u/l) CPK-MB (ng/ML) 0.02-0.05 26.00-308.00 0.50-3.60 0.05 563 80.0 Medication Medication Total Dose (Bolus/Oral) Medication Total Dosage/Unit Bupivacaine 1 mL FENTANYL 25 mcg RADIAL COCKTAIL 1 units VERSED 0.5 mg Medications (Bolus/Oral) Medication Time Given Dosage/Unit Administered By Reason 03/26/2017 10:49:27 FENTANYL 25 mcg Lucia Seo AM 25 mcg FENTANYL given in lab by Lucia Seo RN in Right Forearm via Peripheral IV. 03/26/2017 10:52:27 VERSED 0.5 mg Destin Newman AM 0.5 mg VERSED given in lab by Destin Newman in Right Radial via Peripheral IV. 03/26/2017 10:52:38 Bupivacaine 1 mL Destin Newman AM 1 mL Bupivacaine given in lab by Destin Newman in Right Radial via Subcutaneous. 03/26/2017 10:54:15 Ntg 200mcg Verapamil 2.5mg Heparin RADIAL COCKTAIL 1 units Destin Newman AM 3000U 1 units RADIAL COCKTAIL given in lab by Destin Newman in Right Radial via Radial. Reason: Ntg 2 00mcg Verapamil 2.5mg Heparin 2500U. Medication (Drip) Medication Time Given Dosage/Unit Concentration/Unit Diluent (ml) Solution 03/26/2017 10:21:37 Amiodarone Drip 0.525 mg/min 450 mg 250 D5W AM Patient arrived on 0.525 mg/min Amiodarone Drip in Right Antecubital via Peripheral IV. Pump/Drip Norbert w = 17.5 ml/hr using D5W with a concentration of 450 mg in 250 ml. IV is infiltrated. Will be hooked up to new IV. 03/26/2017 10:40:40 IV Solutions 0 mL (IV) 500 NaCl .9 AM IV Solutions given in lab by Lucia Seo RN in Right Forearm via Peripheral IV. Pump/Drip Flow = 30 ml/hr using NaCl .9. Initial Case Assessment Cardiovascular HR Rhythm NIBP Chest Pain 64 reg 127/85 0 Edema Present Skin color Skin None Normal Warm Dry Circulatory - Right Pulses Dorsalis Pedis Femoral Radial 2 2 2 Scale (0,1,2,3,4,d) Circulatory - Left Pulses Dorsalis Pedis Femoral Radial 2 2 Scale (0,1,2,3,4,d) Circulatory - Lower Extremities Color Lower Right Color Lower Left Normal Normal Neurological State Oriented to time-place- Alert Moves all extremities person Respiration - General Respiration Rate SpO2 (%) (B/min) 11 97 Chronological Log Time Study Chronological Log 10:21:09 Patient arrived via Bed. 10:21:10 Patient Name, D.O.B, / Armband Verified By R.N. 10:21:11 Consent signed by the physician and the patient and verified by the [facility] staff. 10:21:20 Verbal Stimulation=2 Physical Stimulation=2 Airway=2 Respiration=2 TOTAL=8. (0=absent, 1=li mited, 2=present) 10:21:27 Immediate Presedation assesment performed by physician. 10:21:30 Allens test performed on the right radial and ulnar artery. 10:21:31 Patient has been NPO for More than 6Hrs. 10:21:31 Skin Breakdown - stales in scalp 10:21:32 Patient Warmer Placed on the Table. 10:21:35 Jaspreet Prominences Protected 10:21:36 A # 20 IV was noted in the Antecubital (left). IV is infiltrated. New site is being putting in. Patient arrived on 0.525 mg/min Amiodarone Drip in Right Antecubital via Peripheral IV. Pump/Dr ip Flow = 17.5 ml/hr 10:21:37 using D5W with a concentration of 450 mg in 250 ml. IV is infiltrated. Will be hooked up to new IV. 10:21:38 History and physical on the chart or being dictated. Assessment: Initial Case, HR=64 BPM, Rhythm=reg, SHLI=151/85 mmhg, Chest Pain=0, Edema=None, Co zeinab=Normal, Skin = Warm, Dry Right Pulses: Carlos Ped=2, Femoral=2, Radial=2 Left Pulses: Carlos Ped=2, Femoral=2 10:21:39 Lower Right Extremities: Color=Normal Lower Left Extremities: Color=Normal Neurological: State=Alert, Ox3, BROOKE Respiration: Resp=11 B/min, SpO2=97 % 10:21:50 Patient was given potassium in room prior to arrival to lab systems analyst. Vitals capture started with the following parameters, Patient=Adult, Interval=5 min, Initial Pr vrnouv=227 mmHg, 10:33:58 Deflation Rate=5 mmHg, Cuff placed on Left Ankle 10:34:25 HR=65 bpm, XEHH=943/85 mmhg, SpO2=97.0 %, Resp=24 B/min, Pain=0, Hugo=10, Prajapati=2 10:39:20 A # 22 IV was noted in the Forearm (right). Grade = 0 New site inserted in lab. 10:40:10 HR=64 bpm, TAWX=840/81 mmhg, SpO2=96.0 %, Resp=18 B/min, Pain=0, Hugo=10, Prajapati=2 IV Solutions given in lab by Lucia Seo, AMINA in Right Forearm via Peripheral IV. Pump/Drip Flow = 30 ml/hr using 10:40:40 NaCl .9. 10:42:37 Right Radial and groin(s) prepped with 2% chlorhexidine, and draped after a 3 min. waiting time. 10:43:34 Reference ECG taken 10:44:34 HR=65 bpm, HHNS=280/54 mmhg, SpO2=98.0 %, Resp=26 B/min, Pain=0, Hugo=10, Prajapati=2 10:47:31 Pressure channel 1 zeroed. Time Out. Correct patient, correct procedure, correct physician, power injector not loaded with contrast with surgical 10:48:42 team present. Time Out Concurred by MD and individual staff in procedure. 10:49:04 Case Start 10:49:27 25 mcg FENTANYL given in lab by Lucia Seo RN in Right Forearm via Peripheral IV. 10:50:16 HR=65 bpm, EXDV=312/55 mmhg, SpO2=97.0 %, Resp=19 B/min, Pain=0, Hugo=10, Prajapati=2 10:50:36 Patient states she thinks she has an allergy to lidocane. 10:52:27 0.5 mg VERSED given in lab by Destin Newman in Right Radial via Peripheral IV. 10:52:38 1 mL Bupivacaine given in lab by Destin Newman in Right Radial via Subcutaneous. 10:53:06 Access site was right Radial Artery. A SHEATH, FR6 TRANSRADIAL SLENDER 10CM FR 6 was advanced into the Fem Art (right) using the Per cutaneous 10:53:22 technique. 1 units RADIAL COCKTAIL given in lab by Destin Newman in Right Radial via Radial. Reason: Ntg 200mcg 10:54:15 Verapamil 2.5mg Heparin 2500U. 10:54:42 HR=72 bpm, WIAB=010/75 mmhg, SpO2=92.0 %, Resp=15 B/min, Pain=0, Hugo=10, Prajapati=2 A JR 4.0 INFINITI CATHETER FR 5 was advanced over a wire. OMNIPAQUE, 350 MG, 150ML 150ML was us ed for 10:55:09 injections. 10:55:41 Wire removed 10:55:53 A WIRE, HYDROSTEER 150CM ANGLED GLIDE 150CM was inserted via Radial (right). 10:59:10 Wire removed glide 10:59:25 A WIRE, EXCHANGE 260CM 3MMJ 260CM was inserted via Radial (right). 10:59:41 HR=67 bpm, WPFZ=132/51 mmhg, SpO2=92.0 %, Resp=16 B/min, Pain=0, Hugo=10, Prajapati=2 11:00:46 Wire removed j Recorded Pressure: LV, HR=67, Condition=Condition 1 11:01:13 (Left Ventricle) LV 113/-3/1 Recorded Pressure: LV, Ao, HR=66, Condition=Condition 1 11:01:33 (Left Ventricle) LV 116/-2/1, (Aorta) Ao 112/47/71 Recorded Pressure: Ao, HR=67, Condition=Condition 1 11:01:51 (Aorta) Ao 111/48/72 11:02:47 The RCA was injected and visualized at various angles. OMNIPAQUE, 350 MG, 150ML 150ML used . After removing the current catheter a JL 4.0 DXTERITY CATHETER FR 5 was advanced over a WIRE, EXCHANGE 260CM 11:04:41 3MMJ 260CM. 11:05:44 HR=68 bpm, OGHS=829/62 mmhg, SpO2=95.0 %, Resp=14 B/min, Pain=0, Hugo=10, Prajapati=2 11:07:08 A WIRE, EXCHANGE 260CM 3MMJ 260CM was inserted via Radial (right). 11:07:41 Wire removed 11:08:22 The LCA was injected and visualized at various angles. OMNIPAQUE, 350 MG, 150ML 150ML use d. 11:10:16 HR=62 bpm, IYQP=252/60 mmhg, SpO2=93.0 %, Resp=18 B/min, Pain=0, Hugo=10, Prajapati=2 11:12:47 A WIRE, EXCHANGE 260CM 3MMJ 260CM was inserted via Radial (right). 11:13:34 Catheter was removed 11:13:37 Wire removed 11:14:38 HR=63 bpm, SJMS=985/60 mmhg, SpO2=95.0 %, Resp=26 B/min, Pain=0, Hugo=10, Prajapati=2 11:15:42 Case End Radial Compression Device Used. 7 mLs of air placed in BAND, RADIAL COMPRESSION TR SHORT 24 24 CM. Affected 11:16:48 hand 94 % O2 saturation. 11:19:33 HR=62 bpm, QADS=738/98 mmhg, SpO2=96.0 %, Resp=33 B/min, Pain=0, Hugo=10, Prajapati=2 11:20:53 Catheter(s) removed without difficulty 11:20:59 No case complications noted. 11:21:02 Bedside Report will be given. 11:21:06 A Left Heart Cath was performed. 11:21:46 DOCU called. Spoke to Sue. 11:24:42 SEDD=253/42 mmhg, Pain=0, Hugo=10, Prajapati=2 11:26:37 Vitals capture stopped. 11:30:[facility] End Study - Contrast Media Used In Study Contrast Total Opened (mL) Total Used (mL) Total Wasted (mL) Omnipaque 45 45 0 End Study - Maximum Contrast Load Max Contrast Load (mL) 549.2 End Study - Radiation Exposure Fluoro Time (minutes) 5.3 End Study - Sheaths Sheaths Pulled By Sheath Hold Time (min) Destin Newman End Study - Patient Disposition Complications Transferred To Interventional Outcome No [facility] No attempt made
--- NOTE | 2017-03-26 12:38 | MA ---
cc: DESTIN DOVE DO DATE March 26, 2017 PROCEDURE Left heart catheterization, coronary angiogram. Moderate sedation 23 minutes PREPROCEDURE DIAGNOSES Wide complex tachycardia. Syncope. POSTPROCEDURE DIAGNOSES Mild coronary artery disease. SVT with syncope. MEDICATIONS 1. Versed 0.5 mg, 2. Fentanyl 25 mcg. 3. Heparin 2500 units. 4. Nitro 200 mcg. 5. Verapamil 2.5 mg. CONTRAST USED 45 cc. FLUOROSCOPY 5.3 minutes MODERATE SEDATION 23 minutes ESTIMATED BLOOD LOSS 10 cc. PROCEDURAL SUMMARY Kimberly Amin is a pleasant 82-year-old female who sees my partner Dr. Alvarez in the office and has had episodes of passing out. She had a syncopal episode and presented to the emergency room. While in the emergency room she was found to have a left bundle branch block but also had wide complex tachycardia. The first episode broke on its but the second episode broke after adenosine. The case was discussed with EP Cardiology, Dr. Richter, and because of the nature of the tachycardia he asked that she be ruled out for ischemia for coronary artery disease by cardiac catheterization. The risks, benefits and alternatives were explained to the patient and her son over the phone and they both consent for the procedure. She was brought to lab and prepped in the usual sterile fashion. The patient believes she has an ALLERGY TO LIDOCAINE and so bupivacaine was used to numb the right radial area. A 5/6-Armenian Slender Sheath was placed in the right radial. This was easily aspirated and flushed. An angiogram of the right radial was done as there was some resistance to the J-wire in the mid-forearm. A Glidewire was used to advance the catheter past this point. A JR-4 was then advanced to the ascending aorta and across the aortic valve for measurement of left ventricular pressure. This was pulled back across the aortic valve showing no significant gradient of aortic stenosis. JR-4 was used for selective angiography of the right coronary artery system. This was exchanged out for a JL-3.5 which was used for selective angiography of the left coronary artery system. JL-3.5 was removed over a J-wire. At the end of the case the patient had some mild pain in her arm and review of the film shows small collaterals around the midforearm. I decided to do an angiogram through the sheath to make sure there was no perforation or dissection which none were noted. A radial band was placed over the arteriotomy site for hemostasis. The patient left the [employer] Mechanic cardiovascularly stable. FINDINGS LEFT MAIN: Normal-sized vessel but overall short with no significant disease. It bifurcates into an LAD and circumflex. LAD: Mild disease throughout the proximal portion. Distally there is significant tortuosity with a 50% lesion in the midportion as well as a 50-60% lesion in the distal portion in an overall small vessel of 1 to 1.5-mm. It gives off two diagonals, both with significant tortuosity but no significant disease. LEFT CIRCUMFLEX: Overall a large vessel which is codominant. There is mild luminal irregularities throughout the proximal portion. It does give off one major obtuse marginal as well as a codominant PDA. Overall the obtuse marginal as well as PDA have tortuosity but no significant disease. RCA: Normal-sized vessel with mild tortuosity throughout. It does supply a PDA which is codominant with the left PDA from the circumflex. No significant disease noted. LVEDP: 5. IMPRESSIONS 1. Wide complex tachycardia most likely due to SVT with underlying left bundle branch block. 2. Syncope. 3. Mild coronary artery disease with significant tortuosity throughout the vessels most likely due to longstanding hypertension. RECOMMENDATIONS 1. Ms. Amin presented with a syncopal episode as well as wide complex tachycardia which is most likely SVT due to her underlying left bundle branch block. 2. She does not appear to have significant coronary artery disease to cause ischemia and possible ventricular tachycardia. 3. She will be seen by Dr. Richter from EP cardiology for further consideration of her syncope with wide complex tachycardia. 4. I will plan to place her on a beta tad to try to decrease her episodes. 5. We will check a 2-D echo to look at her overall left ventricular function, cardiac structure and possible valvopathies. Thank you for allowing me to see Kimberly Amin. If there are any questions, please do not hesitate to call. Destin Dove DO VGP/SSB /11:40 AM /12:13 PM
[2017-03-26] MEDS ORDERED: HEPARIN-NS/PF INJ 500 ML ONE (12:55)
[2017-03-26] MEDS ORDERED: IOHEXOL 350 MG/ML 50 ML BTL (for Cath Lab) OTHER ONE (13:16)
[2017-03-26] MEDS: METOPROLOL TARTRATE 25 MG TAB PO SCH ×2 (14:49→19:39)
[2017-03-26] MEDS: MAGNESIUM SULFATE 1 GM PREMIX 100 ML IV SCH ×2 (14:49→16:18)
--- NOTE | 2017-03-26 18:24 | HHI.PR ---
Subjective Remarks Patient seen after heart catheterization. She denies any complaints. No chest pain or shortness of breath. She has not been out of bed yet. Objective Vitals Vital Signs Date Time Temp Pulse Resp B/P (MAP) Pulse Ox O2 Delivery O2 Flow Rate FiO2 03/26/17 13:33 99 03/26/17 11:40 99 Room Air 03/26/17 08:00 97.3 61 20 158/70 (99) 98 03/26/17 08:00 76 03/26/17 05:06 60 03/26/17 05:01 60 154/73 03/26/17 04:15 98.0 63 18 154/73 (100) 97 03/26/17 02:48 67 03/26/17 00:18 97.8 66 18 159/69 (99) 97 03/26/17 00:15 62 03/25/17 20:30 98.2 70 18 153/68 (96) 97 03/25/17 20:15 71 I/O 03/25/17 03/25/17 03/25/17 03/26/17 03/26/17 03/26/17 07:00 15:00 23:00 07:00 15:00 23:00 Intake Total 1371 ml 653 ml 480 ml 100 ml Output Total 200 ml 2200 ml 100 ml Balance 1171 ml -1547 ml 380 ml 100 ml Intake Oral 480 ml 420 ml 480 ml IV Total 891 ml 233 ml 100 ml Output Urine Total 200 ml 2200 ml 100 ml # Voids 1 # Bowel Movements 1 2 0 Result Diagram: 03/25/17 0723 03/26/17 0720 Objective Remarks GENERAL: This is a well-nourished, well-developed patient, in no apparent distress. CARDIOVASCULAR: Normal rate and regular rhythm without murmurs, gallops, or rubs. RESPIRATORY: Good respiratory efforts. Breath sounds equal and clear to auscultation bilaterally. GASTROINTESTINAL: Abdomen soft, non-tender, non-distended. Normal active bowel sounds MUSCULOSKELETAL: Extremities without cyanosis, or edema. NEURO: Alert & Oriented x4 to person, place, time, situation. Moves all ext x4 PSYCH: Appropriate mood and affect. A/P Assessment and Plan 82yo female with PMHX of hypertension, asthma, GERD, hypothyroidism, HLD and breast cancer who presents to [facility] ED with complaints of syncope. Syncopal episode Wide complex tachycardia, most likely SVT per cardiology. - Patient has a history of left bundle branch block with multiple syncopal episodes in the past per her cover creaser Dr. Alvarez - While in the ED, patient developed supraventricular tachycardia with left bundle branch block felt less likely to be due to ventricular tachycardia, -Cardiology following. Patient underwent heart catheterization today which showed mild CAD. EP, Dr. Richter to evaluate the patient. Started on metoprolol. 2-D echo pending. Head laceration secondary to injury as a result of fall from syncopal episode s/p closure of laceration in the ED - CT head shows no acute intracranial abnormality, hematoma within the scalp posterior leg on the right, images personally reviewed - CT cervical spine shows no acute fracture or perivertebral soft tissue swelling, degenerative changes noted throughout the cervical spine, images personally reviewed - Monitor wound for proper healing - neuro checks Hypertension -Continue patient's home dose of Norvasc 10 mg daily and Cozaar 100 mg daily - Continue to monitor blood pressure Hypothyroidism - Resume patient's home dose of Synthroid 50 g daily -TSH okay Hypokalemia: Mild - Replace and monitor Dyslipidemia - Resume patient's home dose of statin therapy Asthma - Not in acute exacerbation - Monitor respiratory status - DuoNeb's as needed DVT prophylaxis - Bilateral SCD/MANJULA hose - Heparin sq Discharge Planning Pending further workup and recommendations from cardiology Zuleika Wiley MD Mar 26, 2017 18:24
--- NOTE | 2017-03-26 20:40 | MB ---
cc: DESTIN DOVE DO DATE OF CONSULTATION 03/26/17 REASON FOR CONSULTATION Wide complex tachycardia with syncope. HISTORY OF PRESENT ILLNESS Kimberly Amin is a pleasant 82-year-old female who sees my partner, Dr. Alvarez, in the office who presented to [facility] emergency room on March 24, 2017 after a syncopal event. 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 When she came to, EMS was there and they were taking her into the ambulance. She does not remember the event very well and lost consciousness for about 30 seconds. She denies chest pain or palpitations before, during or after the event. While in the emergency room, she was found to have a left bundle branch block and ER physician discussed with Dr. Alvarez about the EKG Dr. Alvarez in the office noted that she previously had a left bundle branch block. She had two events of tachycardia which are sudden onset and wide complex due to her left bundle branch block. The first one resolved without medication and the second one broke with adenosine. She felt lightheaded during these events with no chest pain or shortness of breath. In seeing Kimberly, she is currently hemodynamically stable without chest pain or shortness of breath. She relates that she has had episodes of tachycardia since the age of 11. Previously, when she was younger she would lay flat and they would go away. Episodes of palpitations come on suddenly and go away suddenly. PAST MEDICAL HISTORY 1. Tachyarrhythmia. 2. Hypertension 3. Dyslipidemia. 4. Hypothyroidism. 5. Gastroesophageal reflux disease 6. Asthma 7. Breast cancer 8. Osteoarthritis 9. Osteoporosis. PAST SURGICAL HISTORY 1. Intramedullary allison fixation of the right femur (2008) 2. Right breast lumpectomy (1979) 3. Left breast lumpectomy (1995) 4. Right shoulder arthroplasty. ALLERGIES ADHESIVE TAPE CODEINE ENALAPRIL KETORALAC AVINASH BELIEVES SHE IS ALSO ALLERGIC TO LIDOCAINE, ALTHOUGH THIS IS NO DOCUMENTED. MEDICATIONS 1. Baclofen 10 mg b.i.d. 2. Zocor 20 mg daily 3. Norvasc 10 mg daily 4. Cozaar 100 mg daily 5. Synthroid 50 mcg daily. 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 She denies tobacco, alcohol or drug abuse. FAMILY HISTORY Denies sudden cardiac within the family. REVIEW OF SYSTEMS 14-systems were reviewed including osteopathic. Pertinent positives and negatives above otherwise negative. PHYSICAL EXAMINATION VITAL SIGNS: Temperature 97.8, heart rate 76, blood pressure 158/70, respirations 20, pulse ox 98% on room air. GENERAL: The patient appears well in no acute distress, alert awake and oriented x3. HEENT: Extraocular muscles intact. Mucous membranes moist. NECK: Supple. No JVD at 45 degrees. No carotid bruits heard bilaterally. Carotid upstroke is brisk in nature. CARDIAC: Regular rate and rhythm. Positive first and second heart sounds with a 1/6 crescendo-decrescendo murmur to the right sternal border. LUNGS: Clear to auscultation bilaterally. No wheezes, rales or rhonchi. ABDOMEN: Soft, nontender, nondistended. No organomegaly noted. EXTREMITIES: Trace edema bilaterally. Femoral and distal pulses intact bilaterally. NEUROLOGIC: No focal deficits. SKIN: Warm, dry and intact. OSTEOPATHIC: No kyphoscoliosis, lordosis or paraspinal tender points. LABORATORY FINDINGS Hemoglobin 12.7, hematocrit 36.1, platelets 264. Potassium 3.2, BUN 14, creatinine 0.63, troponin 0.05, TSH 2.66. CARDIOLOGY STUDIES Electrocardiogram (March 25, 2017 at 01:14) sinus rhythm, left bundle branch block with frequent PVCs. IMPRESSION 1. Syncope. 2. Tachyarrhythmia with wide complex tachycardia. 3. History of hypertension 4. History of hyperlipidemia. RECOMMENDATIONS 1. Ms. Amin presented with a syncopal episode and was found to have tachyarrhythmia while in the emergency room. Once of these broke by itself while the other was broken with adenosine. 2. I discussed this briefly with Dr. Richter and there is concern as it is a wide complex tachycardia for ventricular tachycardia which could be adenosine sensitive. Because of this, she will be recommended cardiac catheterization to rule out ischemic coronary artery disease. 3. Risks, benefits and alternatives were explained to her as well as her son over the phone and they consent. 4. We will check a 2-D echo to look at her overall left ventricular function, cardiac structure and possible valvopathies. 5. She will be placed on beta tad therapy. 6. If cardiac catheterization does not have ischemic lesions, Dr. Richter will be consulted from an EP standpoint for further recommendations with her tachyarrhythmia as well as syncope. Thank you for allowing me to see Kimberly Amin. If there are any questions, please do not hesitate to call. Destin Dove DO VGP/SA /7:59 PM /8:15 PM
[2017-03-27] VITALS (15 sets, daily range): BP systolic 122–159; BP diastolic 51–86; PULSE 53–68; RESP 17–20; TEMP 97.6–98.8; O2SAT 64–99
[2017-03-27] MEDS: METOPROLOL TARTRATE 25 MG TAB PO SCH ×2 (08:11→22:34)
[2017-03-27] MEDS: HEPARIN SODIUM - SQ 10,000 UNITS/ML VIAL SQ SCH (08:11)
[2017-03-27 09:35] LABS: AUTOMATED NEUTROPHIL # 7.9 TH/MM3 (1.8-7.7); BASOPHIL # 0.1 TH/MM3 (0-0.2); BASOPHIL % 0.9 % (0.0-2.0); EOSINOPHIL # 0.1 TH/MM3 (0-0.4); EOSINOPHIL % 0.6 % (0.0-4.0); HEMATOCRIT 33.2 % (35.0-46.0); LYMPH % 13.5 % (9.0-44.0); LYMPHOCYTE # 1.4 TH/MM3 (1.0-4.8); MEAN CELL VOLUME 95.7 FL (80.0-100.0); MEAN CORPUSCULAR HGB CONC 34.5 % (32.0-36.0); MONO % 7.3 % (0.0-8.0); NEUT % 77.7 % (16.0-70.0); PLATELET COUNT 275 TH/MM3 (150-450); RED BLOOD COUNT 3.47 MIL/MM3 (4.00-5.30); RED CELL DISTRIBUTION WIDTH 13.6 % (11.6-17.2); WHITE BLOOD COUNT 10.2 TH/MM3 (4.0-11.0)
[2017-03-27 09:49] LABS: HEMO FLAGS AUTO DIFF
[2017-03-27 09:53] LABS: BICARBONATE 21.8 MEQ/L (21.0-32.0); POTASSIUM 3.2 MEQ/L (3.5-5.1)
[2017-03-27 10:50] LABS: PLATELET ESTIMATE SMEAR NORMAL (NORMAL); PLATELET MORPHOLOGY NORMAL (NORMAL); SCAN/DIFF AUTO DIFF CONFIRMED
--- NOTE | 2017-03-27 12:49 | HHI.PR ---
Subjective Remarks Patient reports she is feeling well. Still had some episodes of lightheadedness. No chest pain or shortness of breath. Had an episode of bradycardia earlier. Objective Vitals Vital Signs Date Time Temp Pulse Resp B/P (MAP) Pulse Ox O2 Delivery O2 Flow Rate FiO2 03/27/17 12:08 98.8 54 17 122/60 (80) 96 03/27/17 08:18 97.8 53 18 159/86 (110) 98 03/27/17 08:00 Room Air 03/27/17 04:58 97.6 65 20 158/78 (104) 98 03/27/17 03:50 64 03/27/17 00:00 97.9 58 18 145/63 (90) 99 03/26/17 23:42 62 03/26/17 20:00 98.1 56 16 123/60 (81) 95 03/26/17 20:00 73 03/26/17 19:38 56 123/60 03/26/17 19:30 Room Air 03/26/17 16:00 97.7 54 18 146/67 (93) 94 03/26/17 13:33 99 I/O 03/26/17 03/26/17 03/26/17 03/27/17 03/27/17 03/27/17 07:00 15:00 23:00 07:00 15:00 23:00 Intake Total 480 ml 200 ml 88 ml 240 ml Output Total 100 ml Balance 380 ml 200 ml 88 ml 240 ml Intake Oral 480 ml 0 ml 240 ml IV Total 200 ml 88 ml Output Urine Total 100 ml # Voids 2 # Bowel Movements 0 1 1 Result Diagram: 03/27/17 0842 03/27/17 0842 Objective Remarks GENERAL: This is a well-nourished, well-developed patient, in no apparent distress. CARDIOVASCULAR: Normal rate and regular rhythm without murmurs, gallops, or rubs. RESPIRATORY: Good respiratory efforts. Breath sounds equal and clear to auscultation bilaterally. GASTROINTESTINAL: Abdomen soft, non-tender, non-distended. Normal active bowel sounds MUSCULOSKELETAL: Extremities without cyanosis, or edema. NEURO: Alert & Oriented x4 to person, place, time, situation. Moves all ext x4 PSYCH: Appropriate mood and affect. A/P Assessment and Plan 82yo female with PMHX of hypertension, asthma, GERD, hypothyroidism, HLD and breast cancer who presents to [facility] ED with complaints of syncope. Syncopal episode Wide complex tachycardia, most likely SVT per cardiology. - Patient has a history of left bundle branch block with multiple syncopal episodes in the past per her hotel engineer Dr. Alvarez - While in the ED, patient developed supraventricular tachycardia with left bundle branch block felt less likely to be due to ventricular tachycardia, -Cardiology following. Patient underwent heart catheterization which showed mild CAD. EP, Dr. Richter following the patient and planning for further electrophysiological studies. Started on metoprolol. 2-D echo pending. Head laceration secondary to injury as a result of fall from syncopal episode s/p closure of laceration in the ED - CT head shows no acute intracranial abnormality, hematoma within the scalp posterior leg on the right, images personally reviewed - CT cervical spine shows no acute fracture or perivertebral soft tissue swelling, degenerative changes noted throughout the cervical spine, images personally reviewed - Monitor wound for proper healing - neuro checks Hypertension -Continue patient's home dose of Norvasc 10 mg daily and Cozaar 100 mg daily - Continue to monitor blood pressure Hypothyroidism - Resume patient's home dose of Synthroid 50 g daily -TSH okay Hypokalemia: Mild - Replace and monitor Dyslipidemia - Resume patient's home dose of statin therapy Asthma - Not in acute exacerbation - Monitor respiratory status - DuoNeb's as needed DVT prophylaxis - Bilateral SCD/MANJULA hose - Heparin sq Discharge Planning Pending further procedures from cardiology. Probable DC tomorrow home depending on findings. Zuleika Wiley MD Mar 27, 2017 12:49
[2017-03-27] MEDS ORDERED: SODIUM CHLOR 0.9% 250 ML INJ 250 ML ONE (16:29)
[2017-03-27] MEDS ORDERED: ISOPROTERENOL HCL 1 MG/5 ML AMP ONE (16:29)
--- NOTE | 2017-03-27 17:17 | PD.CARD.PN ---
Subjective Subjective Remarks Patient was seen earlier today around noon, late entry No events overnight Heart rates low normal, asymptomatic No chest pain Objective Medications Current Medications Medications (Trade) Dose Ordered Sig/Juan Pablo Route Start Time Stop Time Status Last Admin (NS Flush) 2 ml UNSCH PRN IVF 03/24/17 11:00 03/24/17 11:28 (Tylenol) 650 mg Q4H PRN PO 03/24/17 15:15 (Zofran Inj) 4 mg Q6H PRN IVP 03/24/17 15:15 (Narcan Inj) 0.4 mg UNSCH PRN IV PUSH 03/24/17 15:15 (Milk Of Magnesia Liq) 30 ml Q12H PRN PO 03/24/17 15:15 (Senokot) 17.2 mg Q12H PRN PO 03/24/17 15:15 (Dulcolax Supp) 10 mg DAILY PRN RECTAL 03/24/17 15:15 (Lactulose Liq) 30 ml DAILY PRN PO 03/24/17 15:15 Amiodarone HCl 450 mg/Dextrose 250 ml @ 33.33 mls/ hr TITRATE PRN IV 03/25/17 01:15 03/26/17 19:38 (Lopressor) 25 mg Q12HR PO 03/26/17 12:00 03/27/17 08:11 (Heparin Inj) 5,000 units Q12HR SQ 03/26/17 21:00 03/27/17 08:11 Vital Signs / I&O Vital Signs Date Time Temp Pulse Resp B/P (MAP) Pulse Ox O2 Delivery O2 Flow Rate FiO2 03/27/17 12:08 98.8 54 17 122/60 (80) 96 03/27/17 08:18 97.8 53 18 159/86 (110) 98 03/27/17 08:00 Room Air 03/27/17 04:58 97.6 65 20 158/78 (104) 98 03/27/17 03:50 64 03/27/17 00:00 97.9 58 18 145/63 (90) 99 03/26/17 23:42 62 03/26/17 20:00 98.1 56 16 123/60 (81) 95 03/26/17 20:00 73 03/26/17 19:38 56 123/60 03/26/17 19:30 Room Air I/O 03/26/17 03/26/17 03/26/17 03/27/17 03/27/17 03/27/17 07:00 15:00 23:00 07:00 15:00 23:00 Intake Total 480 ml 200 ml 88 ml 240 ml Output Total 100 ml Balance 380 ml 200 ml 88 ml 240 ml Intake Oral 480 ml 0 ml 240 ml IV Total 200 ml 88 ml Output Urine Total 100 ml # Voids 2 # Bowel Movements 0 1 1 Physical Exam GENERAL: NAD SKIN: Warm and dry. HEAD: Atraumatic. Normocephalic. EYES: Pupils equal and round. No scleral icterus. No injection or drainage. ENT: No nasal bleeding or discharge. Mucous membranes pink and moist. NECK: Trachea midline. No JVD. CARDIOVASCULAR: Regular rate and rhythm. RESPIRATORY: No accessory muscle use. Clear to auscultation. Breath sounds equal bilaterally. GASTROINTESTINAL: Abdomen soft, non-tender, nondistended. Hepatic and splenic margins not palpable. MUSCULOSKELETAL: Extremities without clubbing, cyanosis, or edema. No obvious deformities. Right radial with ecchymosis, no hematoma, neurovascularly intact distally NEUROLOGICAL: Awake and alert. No obvious cranial nerve deficits. Motor grossly within normal limits. Five out of 5 muscle strength in the arms and legs. Normal speech. PSYCHIATRIC: Appropriate mood and affect; insight and judgment normal. Laboratory Laboratory Tests Test 03/27/17 08:42 White Blood Count 10.2 TH/MM3 Red Blood Count 3.47 MIL/MM3 Hemoglobin 11.5 GM/DL Hematocrit 33.2 % Mean Corpuscular Volume 95.7 FL Mean Corpuscular Hemoglobin 33.0 PG Mean Corpuscular Hemoglobin Concent 34.5 % Red Cell Distribution Width 13.6 % Platelet Count 275 TH/MM3 Mean Platelet Volume 8.2 FL Neutrophils (%) (Auto) 77.7 % Lymphocytes (%) (Auto) 13.5 % Monocytes (%) (Auto) 7.3 % Eosinophils (%) (Auto) 0.6 % Basophils (%) (Auto) 0.9 % Neutrophils # (Auto) 7.9 TH/MM3 Lymphocytes # (Auto) 1.4 TH/MM3 Monocytes # (Auto) 0.7 TH/MM3 Eosinophils # (Auto) 0.1 TH/MM3 Basophils # (Auto) 0.1 TH/MM3 CBC Comment AUTO DIFF Differential Comment AUTO DIFF CONFIRMED Platelet Estimate NORMAL Platelet Morphology Comment NORMAL Red Cell Morphology Comment NORMAL Blood Urea Nitrogen 13 MG/DL Creatinine 0.58 MG/DL Random Glucose 98 MG/DL Calcium Level 8.2 MG/DL Sodium Level 138 MEQ/L Potassium Level 3.2 MEQ/L Chloride Level 106 MEQ/L Carbon Dioxide Level 21.8 MEQ/L Anion Gap 10 MEQ/L Estimat Glomerular Filtration Rate 99 ML/MIN Assessment and Plan Problem List: (1) SVT (supraventricular tachycardia) ICD Codes: I47.1 - Supraventricular tachycardia (2) Wide-complex tachycardia ICD Codes: I47.2 - Ventricular tachycardia (3) CAD (coronary artery disease) ICD Codes: I25.10 - Atherosclerotic heart disease of [place] coronary artery without angina pectoris (4) Syncope ICD Codes: R55 - Syncope and collapse Status: Acute Assessment and Plan 1) Syncope with episodes of wide complex tachycardia 2) Cardiac cath showing mild CAD, non-ischemic cause 3) Baseline LBBB, possible AVNRT? 4) EP cardiology to see, consideration of EP study with ablation 5) Started on BB therapy 6) Will defer further management to Dr. Richter, EP cardio Will see PRN, call with questions Problem Qualifiers (1) Syncope: Qualified Codes: R55 - Syncope and collapse Destin Newman DO Mar 27, 2017 17:17
--- NOTE | 2017-03-27 17:54 | MB ---
cc: BOOGIE DOVE HANSCY M.D. DATE OF CONSULTATION 03/26/17 HISTORY OF PRESENT ILLNESS Mrs. Amin is an 82-year-old female with recurrent episode of tachyarrhythmia since she was a teenager, multiple episodes, admitted to the emergency room due to tachyarrhythmia. Nuclear stress study was performed during hospitalization, was negative for ischemia. I was consulted for further evaluation and management. The chart was reviewed. The patient is evaluated. Case discussed with the patient as well as Dr. Dove. ALLERGIES ADHESIVE CODEINE ENALAPRIL ATORALAC LATEX SOCIAL HISTORY Negative for smoking and drinking. FAMILY HISTORY Noncontributory to her current medical condition. MEDICATIONS She was put on Amiodarone in the emergency room as well as Metoprolol. REVIEW OF SYSTEMS Currently, the patient refers no chest pain, no chest discomfort. No vomiting. No fever. PHYSICAL EXAMINATION GENERAL: Alert, fully oriented. VITAL SIGNS: Blood pressure on evaluation 142/67, pulse 54, respiratory rate 18 LUNGS: Ventilated CARDIOVASCULAR: S1, S2 regular. No gallop. ABDOMEN: Soft. No mass. EXTREMITIES: No edema. CARDIOLOGY STUDIES Electrocardiogram - sinus rhythm, left bundle-branch block. LABORATORY DATA Hemoglobin 12.7, white blood cell 7.0, INR 1.1, creatinine is 0.58, potassium 3.2. ASSESSMENT AND RECOMMENDATIONS Mrs. Amin has recurrent tachyarrhythmia. She referred she is having those episode since she can remember. She has left bundle-branch block. This is not ventricular tachycardia. It is most likely supraventricular tachyarrhythmia. The rate was around 140-160 beats per minute. 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 Electrophysiology study and ablation discussed with her. The risks, the nature and the benefit of the procedure are clearly stated to her. Risks include pneumothorax, cardiac perforation, stroke and even . The patient understood and agreed to proceed. Procedure will be performed during hospitalization. MD JEROME Mendez/ /5:36 PM /5:43 PM
--- NOTE | 2017-03-27 18:20 | MA ---
cc: MAGALYS MCCARTHY M.D. DATE: 03/27/2017 TYPE OF PROCEDURE: Electrophysiology study, CS cannulation, 3-D mapping radiofrequency ablation of AV brenda reentrant tachycardia and right atrial tachycardia ablation. HISTORY: Mrs. Amin is a 81-year-old female with recurrent vaso tachyarrhythmia <<0:33>> recurrent tachyarrhythmia during hospitalization when electrophysiology study and ablation. The risks, the nature and the benefit of the procedure are clearly stated to her risks include pneumothorax, cardiac perforation, stroke, need for open heart surgery and even . The patient understood and agreed to proceed. PROCEDURE After written informed consent was obtained, the patient was brought to the EP lab where she was prepped and draped in the usual sterile fashion. Conscious sedation was initiated and maintained throughout the procedure by anesthesiologist. Once sedation verified, the right and left inguinal area was anesthetized with 2% Xylocaine. Using modified Seldinger technique, the right femoral vein was cannulated on two occasions two guidewire were advanced, over the wire a 6 and 8-Algerian Hemaquet were advanced in the left femoral vein was done on three occasions, three guidewires were advanced over the wire, three 5-Algerian Hemaquet were advanced. Then under fluoroscopic guidance through the 5-Algerian Hemaquet, four 5-Algerian Jose Maria curved quadripolar electrophysiology catheter were advanced and positioned on the HIS, upper right atrium coronary sinus and right ventricular apex. Basic interval was measured all within normal limits. At this point atrial pacing protocol was performed atrial pacing protocol consisted of incremental and atrial pacing as well as program stimulation with 110 cycle length and up to one excess stimuli delivered during atrial pacing protocol during manipulation of the dilator and incremental atrial pacing protocol supraventricular tachyarrhythmia intracardiac characteristic of AV rbenda reentrant tachycardia was induced. He was pace terminated. Then ventricular pacing protocol was performed. There was VA conduction it was concentric. Then through the 8-Algerian Hemaquet, a Cordis Joseph D curve 4 mm mapping and radiofrequency ablation catheter was advanced. Using [employer] endocardial solution mapping system, a three-dimensional configuration of the right atrium was obtained. Then, the catheter was advanced into the tricuspid valve annulus was a small and a big V observed radiofrequency energy was delivered. The patient was in junctional rhythm. Further burn was delivered in the area. Then atrial pacing protocol was performed again no tachyarrhythmia was induced. Then atrial pacing protocol was repeated on Isuprel. The patient went in atrial fibrillation. She was cardioverted in sinus rhythm. Then atrial pacing protocol was recorded. A repeat again supraventricular tachyarrhythmia was induced. At this time came into the close to the ostial portion of the coronary sinus. Ablation was performed and it was successful. The patient went in junctional rhythm. There was some AV dissociation. It was mostly because apparently the patient for long time not was not conducting from the node. Subsequent Isuprel and post Isuprel AV node conduction observed. At that point procedure was complete. All catheters were removed. The patient going to be transferred to recovery room. That was a complex case. No incident report. The patient tolerated procedure, blood loss minimal. 1. Electrocardiogram baseline the patient was in sinus rhythm, plus left bundle-branch block. Postprocedure electrocardiogram was unchanged. 2. Basic interval base cycle length was around 140 AH at 74 and HV at 50 milliseconds. 3. 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 Ablation was successful. 4. Electrophysiology study, mapping radiofrequency ablation of AV brenda reentrant tachycardia and right atrial tachyarrhythmia, COMMENT/RECOMMENDATIONS: The patient going to be transferred to recovery room. Will be observed when stable can be discharged home. MD JEROME Mendez/jasen /5:59 PM /6:07 PM
[2017-03-27] MEDS ORDERED: BACITRACIN OINT 0.9 GM PKT TOP ONE (19:00)
[2017-03-27] MEDS ORDERED: oxyCODONE/ACETAMINOPHEN 5 MG/325 MG TAB PO PRN ×2 (19:00)
[2017-03-27] MEDS ORDERED: LIDOCAINE HCL 1% 50 ML VIAL INFIL PRN (19:00)
[2017-03-27] MEDS ORDERED: SODIUM CHLOR 0.9% 250 ML INJ 250 ML IV PRN (19:00)
[2017-03-27] MEDS ORDERED: ATROPINE SULFATE 1 MG/ML VIAL IV PUSH PRN (19:00)
[2017-03-27] MEDS ORDERED: ONDANSETRON HCL 4 MG/2 ML VIAL IV PUSH PRN (19:00)
--- NOTE | 2017-03-27 22:23 | EKG ---
Date Performed: 03/27/2017 Time Performed: 20:53:14 PTAGE: 82 years EKG: Sinus rhythm Left bundle branch block Abnormal ECG PREVIOUS TRACING : 03/25/2017 01.14 Compared to previous tracing, PVCs are no longer present. DOCTOR: Kyle Rehman Interpretating Date/Time 03/27/2017 22:22:11
[2017-03-28] VITALS (21 sets, daily range): BP systolic 124–178; BP diastolic 60–113; PULSE 54–72; RESP 16–20; TEMP 97.7–98.6; O2SAT 95–98
[2017-03-28] MEDS: METOPROLOL TARTRATE 25 MG TAB PO SCH ×2 (08:19→21:06)
[2017-03-28] MEDS: LEVOTHYROXINE SODIUM 50 MCG TAB PO SCH (09:30)
--- NOTE | 2017-03-28 10:22 | HHI.PR ---
Subjective Remarks Getting dizzy. Had some periods of confusion earlier this morning. Patient states confusion not unusual for her early in the morning. BP uncontrolled. She lives alone. Discussed with son. He will be able to stay with her as of tomorrow. Objective Vitals Vital Signs Date Time Temp Pulse Resp B/P (MAP) Pulse Ox O2 Delivery O2 Flow Rate FiO2 03/28/17 08:47 21 03/28/17 08:00 98.6 65 16 170/72 (104) 95 171/79 (109) 178/113 (134) 03/28/17 08:00 65 03/28/17 08:00 95 Room Air 03/28/17 07:00 60 03/28/17 03:00 98.0 62 18 153/68 (96) 97 03/28/17 02:00 56 20 141/64 (89) 95 03/28/17 01:00 63 20 143/65 (91) 95 03/28/17 00:00 98.6 58 18 136/63 (87) 97 03/27/17 23:00 62 20 149/65 (93) 64 03/27/17 22:30 64 20 153/66 (95) 95 03/27/17 22:00 67 20 154/66 (95) 95 03/27/17 21:30 63 20 139/64 (89) 95 03/27/17 21:00 65 20 157/51 (86) 95 03/27/17 20:30 64 20 153/66 (95) 95 03/27/17 20:15 66 18 154/62 (92) 96 03/27/17 20:00 68 18 155/69 (97) 95 03/27/17 20:00 97 Room Air 03/27/17 19:45 68 18 149/65 (93) 94 03/27/17 19:30 98.6 68 18 145/65 (91) 94 03/27/17 18:54 98 Room Air 03/27/17 12:08 98.8 54 17 122/60 (80) 96 I/O 03/27/17 03/27/17 03/27/17 03/28/17 03/28/17 03/28/17 07:00 15:00 23:00 07:00 15:00 23:00 Intake Total 88 ml 240 ml Balance 88 ml 240 ml Intake Oral 0 ml 240 ml IV Total 88 ml # Voids 2 # Bowel Movements 1 Result Diagram: 03/27/1742 03/27/17841 Objective Remarks GENERAL: This is a well-nourished, well-developed patient, in no apparent distress. CARDIOVASCULAR: Normal rate and regular rhythm without murmurs, gallops, or rubs. RESPIRATORY: Good respiratory efforts. Breath sounds equal and clear to auscultation bilaterally. GASTROINTESTINAL: Abdomen soft, non-tender, non-distended. Normal active bowel sounds MUSCULOSKELETAL: Extremities without cyanosis, or edema. NEURO: Alert & Oriented x4 to person, place, time, situation. Moves all ext x4 PSYCH: Appropriate mood and affect. A/P Assessment and Plan 82yo female with PMHX of hypertension, asthma, GERD, hypothyroidism, HLD and breast cancer who presents to [facility] ED with complaints of syncope. Syncopal episode Wide complex tachycardia, most likely SVT per cardiology. 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 Alvarez - While in the ED, patient developed supraventricular tachycardia with left bundle branch block felt less likely to be due to ventricular tachycardia, -Cardiology following. Patient underwent heart catheterization which showed mild CAD. EP, Dr. Richter followed the patient. She underwent successful ablation. DW Dr. Richter. Cleared from a Cardiac standpoint to DC on Metoprolol. Head laceration secondary to injury as a result of fall from syncopal episode s/p closure of laceration in the ED - CT head shows no acute intracranial abnormality, hematoma within the scalp posterior leg on the right, images personally reviewed - CT cervical spine shows no acute fracture or perivertebral soft tissue swelling, degenerative changes noted throughout the cervical spine, images personally reviewed - Monitor wound for proper healing - neuro checks Concussion: Patient still having residual effects such as intermittent lightheadedness. She will need outpatient follow up at a concussion clinic or Neurology. Hypertension - Resume home dose of Norvasc 10 mg daily and Cozaar 100 mg daily - Continue to monitor blood pressure Hypothyroidism - Resume patient's home dose of Synthroid 50 g daily -TSH okay Hypokalemia: Mild - Replace and monitor Dyslipidemia - Resume patient's home dose of statin therapy Asthma - Not in acute exacerbation - Monitor respiratory status - DuoNeb's as needed DVT prophylaxis - Bilateral SCD/MANJULA hose - Heparin sq Discharge Planning PT to re eval. Need improvement in BP and continue to monitor neuro status, lightheadedness. Likely DC in AM with home health. Zuleika Wiley MD Mar 28, 2017 10:22
[2017-03-28] MEDS: LOSARTAN 50 MG TAB PO SCH (10:24)
--- NOTE | 2017-03-28 10:34 | EKG ---
Date Performed: 03/28/2017 Time Performed: 05:07:48 PTAGE: 82 years EKG: Sinus rhythm Left bundle branch block Abnormal ECG PREVIOUS TRACING : 03/27/2017 20.53 No significant change from previous tracing noted. DOCTOR: Kyle Rehman Interpretating Date/Time 03/28/2017 10:32:20
[2017-03-28 12:42] LABS: BICARBONATE 24.2 MEQ/L (21.0-32.0); POTASSIUM 3.3 MEQ/L (3.5-5.1)
--- NOTE | 2017-03-28 13:29 | HHI.FF ---
Face to Face Verification Diagnosis: (1) SVT (supraventricular tachycardia) (2) Syncope (3) CAD (coronary artery disease) (4) Wide-complex tachycardia Home Health Nursing Order: Medical education Signs/symptoms of disease process Medication education-adverse effect Nursing assessment with vital signs I have seen patient Kimberly Amin on 03/28/17. My clinical findings support the need for the requested home health care services because: Limited ability to care for self Need for psychosocial assistance I certify that my clinical findings support that this patient is homebound because: Need for psychosocial assistance Poor cardiac reserve Zuleika Wiley MD Mar 28, 2017 13:29
--- NOTE | 2017-03-28 13:44 | ECHRPT ---
Indication: svt CONCLUSIONS Moderately dilated left ventricle. Mild concentric left ventricular hypertrophy. The left ventricular systolic function is severely reduced with an estimated ejection fraction in th e range of 30-35%. There is diffuse global hypokinesis with distinct regional wall motion abnormalities. Doppler parameters are consistent with a pseudonormal left ventricular filling pattern with concomin ant abnormal relaxation and increased filling pressure (grade 2 diastolic dysfunction). Mild mitral valve regurgitation. Aortic valve sclerosis is present. No aortic valve regurgitation. No aortic valve stenosis. There is mild tricuspid valve regurgitation. The estimated pulmonary arterial pressure is 38.9 mmHg. BP: / HR: Rhythm: MEASUREMENTS (Male / Female) Normal Values Technical Quality:Good 2D ECHO LV Diastolic Diameter PLAX 3.6 cm 4.2 - 5.9 / 3.9 - 5.3 cm LV Systolic Diameter PLAX 3.4 cm IVS Diastolic Thickness 1.6 cm 0.6 - 1.0 / 0.6 - 0.9 cm LVPW Diastolic Thickness 1.2 cm 0.6 - 1.0 / 0.6 - 0.9 cm LV Relative Wall Thickness 0.8 RV Internal Dim ED PLAX 2.7 cm M-MODE Aortic Root Diameter MM 2.4 cm LA Systolic Diameter MM 3.0 cm LA Ao Ratio MM 1.3 AV Cusp Separation MM 1.8 cm DOPPLER Mitral E Point Velocity 65.6 cm/s Mitral A Point Velocity 113.0 cm/s Mitral E to A Ratio 0.6 LV E' Lateral Velocity 2.7 cm/s Mitral E to LV E' Lateral Ratio 24.0 LV E' Septal Velocity 4.1 cm/s Mitral E to LV E' Septal Ratio 16.0 TR Peak Velocity 269.0 cm/s TR Peak Gradient 28.9 mmHg Right Atrial Pressure 10.0 mmHg Pulmonary Artery Systolic Pressu 38.9 mmHg Right Ventricular Systolic Press 38.9 mmHg FINDINGS LEFT VENTRICLE Moderately dilated left ventricle. Mild concentric left ventricular hypertrophy. The left ventricular systolic function is severely reduced with an estimated ejection fraction in th e range of 30-35%. There is diffuse global hypokinesis with distinct regional wall motion abnormalities. Doppler parameters are consistent with a pseudonormal left ventricular filling pattern with concomin ant abnormal relaxation and increased filling pressure (grade 2 diastolic dysfunction). RIGHT VENTRICLE Normal right ventricular size and systolic function. LEFT ATRIUM The left atrial size is normal. RIGHT ATRIUM The right atrial size is normal. ATRIAL SEPTUM Normal atrial septal thickness without atrial level shunting by limited color doppler interrogation. AORTA The aortic root and proximal ascending aorta are normal in size on limited imaging. MITRAL VALVE Structurally normal mitral valve. Mild mitral valve regurgitation. AORTIC VALVE Trileaflet aortic valve. Aortic valve sclerosis is present. No aortic valve regurgitation. No aortic valve stenosis. TRICUSPID VALVE Structurally normal tricuspid valve. There is mild tricuspid valve regurgitation. The estimated pulmonary arterial pressure is 38.9 mmHg. PULMONARY VALVE No pulmonary valve regurgitation or stenosis. VESSELS The inferior vena cava is normal in size. PERICARDIUM No pericardial effusion. Vinh López MD, FACC (Electronically Signed) Final Date:28 March 2017 13:44
[2017-03-28] MEDS ORDERED: POTASSIUM CHLORIDE 20 MEQ CONTROLLED RELEASE TAB PO ONE (17:30)
[2017-03-28] MEDS: PRAVASTATIN SOD 40 MG TAB PO SCH (18:22)
[2017-03-29] VITALS (14 sets, daily range): BP systolic 120–169; BP diastolic 58–77; PULSE 51–70; RESP 16–18; TEMP 97–97.6; O2SAT 98
[2017-03-29] MEDS: LEVOTHYROXINE SODIUM 50 MCG TAB PO SCH (06:23)
[2017-03-29] MEDS ORDERED: METO25TA3 PO (09:34)
--- NOTE | 2017-03-29 09:35 | HHI.DS ---
Discharge Summary Admission Date Mar 24, 2017 at 16:02 Discharge Date: Mar 29, 2017 Admitting Diagnosis syncope, laceration scalp, closed head injury (1) Syncope and collapse ICD Code: R55 - Syncope and collapse (2) SVT (supraventricular tachycardia) ICD Code: I47.1 - Supraventricular tachycardia (3) Wide-complex tachycardia ICD Code: I47.2 - Ventricular tachycardia (4) Physical deconditioning ICD Code: R53.81 - Other malaise (5) CAD (coronary artery disease) ICD Code: I25.10 - Atherosclerotic heart disease of [place] coronary artery without angina pectoris Procedures None Brief History - From Admission History of present illness from the admitting team 82yo female with PMHX of hypertension, asthma, GERD, hypothyroidism, HLD and breast cancer who presents to [facility] ED with complaints of syncope. 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 EMS states the patient apparently had loss of consciousness for 30 seconds. When she awakened , patient had some confusion but quickly recovered. Patient denies any previous history of coronary artery disease or previous HI. She denies any previous seizure history. Per the ED note, STEMI was called in the field due to EKG findings of LBBB. ED physician contacted patient's tube mill operator Dr. Alvarez who stated that the EKG changes were not new and the patient's had multiple syncopal episodes in the past. They have been discussing a possible loop recorder. While in the ED, patient developed supraventricular tachycardia that was felt to be less likely due to ventricular tachycardia. Patient will be admitted to [facility]. CBC/BMP: 03/27/17 0842 03/28/17 1105 Significant Findings Laboratory Tests Test 03/27/17 08:42 03/28/17 11:05 Red Blood Count 3.47 MIL/MM3 (4.00-5.30) Hemoglobin 11.5 GM/DL (11.6-15.3) Hematocrit 33.2 % (35.0-46.0) Neutrophils (%) (Auto) 77.7 % (16.0-70.0) Neutrophils # (Auto) 7.9 TH/MM3 (1.8-7.7) Calcium Level 8.2 MG/DL (8.5-10.1) 8.1 MG/DL (8.5-10.1) Potassium Level 3.2 MEQ/L (3.5-5.1) 3.3 MEQ/L (3.5-5.1) Random Glucose 145 MG/DL (74-106) Estimat Glomerular Filtration Rate 77 ML/MIN (>89) Imaging Last Impressions Head CT 03/24/17 1100 Signed Impressions: Service Date/Time: Friday, March 24, 2017 11:40 - CONCLUSION: 1. No acute intracranial abnormality identified. 2. Hematoma within the scalp posteriorly on the right. Chris Christopher MD Chest X-Ray 03/24/17 1100 Signed Impressions: Service Date/Time: Friday, March 24, 2017 11:07 - CONCLUSION: 1. Minimal left lung base atelectasis. 2. Prominence of the right perihilar region likely due to tortuous thoracic aorta. Jer Lay MD Cervical Spine CT 03/24/17 1100 Signed Impressions: Service Date/Time: Friday, March 24, 2017 11:40 - CONCLUSION: 1. No acute fracture or prevertebral soft tissue swelling. 2. Minimal spinal stenosis at C4-5 and C6-7. 3. Severe left neuroforaminal narrowing and moderate right neuroforaminal narrowing at C4-5. 4. Moderate bilateral neuroforaminal narrowing at C6-7. 5. Moderate left neuroforaminal narrowing at C5-6. Fer Damico MD PE at Discharge GENERAL: This is a well-nourished, well-developed patient, in no apparent distress. CARDIOVASCULAR: Normal rate and regular rhythm without murmurs, gallops, or rubs. RESPIRATORY: Good respiratory efforts. Breath sounds equal and clear to auscultation bilaterally. GASTROINTESTINAL: Abdomen soft, non-tender, non-distended. Normal active bowel sounds MUSCULOSKELETAL: Extremities without cyanosis, or edema. NEURO: Alert & Oriented x4 to person, place, time, situation. Moves all ext x4 PSYCH: Appropriate mood and affect. Pt update on day of discharge Patient reports she is feeling good today. No chest pain or shortness of breath. No lightheadedness. Hospital Course 82yo female with PMHX of hypertension, asthma, GERD, hypothyroidism, HLD and breast cancer who presents to [facility] ED with complaints of syncope. Evaluation and treatment course detailed below: Syncopal episode Wide complex tachycardia, most likely SVT per cardiology. - Patient has a history of left bundle branch block with multiple syncopal episodes in the past per her tube mill operator Dr. Alvarez - While in the ED, patient developed supraventricular tachycardia with left bundle branch block felt less likely to be due to ventricular tachycardia, -Cardiology followed the patient. She underwent heart catheterization which showed mild CAD. EP, Dr. Richter followed the patient. She underwent successful ablation. DW Dr. Richter. Cleared from a Cardiac standpoint to DC on Metoprolol. Head laceration secondary to injury as a result of fall from syncopal episode s/p closure of laceration in the ED - CT head shows no acute intracranial abnormality, hematoma within the scalp posterior leg on the right, images personally reviewed - CT cervical spine shows no acute fracture or perivertebral soft tissue swelling, degenerative changes noted throughout the cervical spine, images personally reviewed -She will follow up outpatient with her primary care physician. Concussion: Patient have residual effects such as intermittent lightheadedness. She will need outpatient follow up at a concussion clinic or Neurology. She is referred to neurology. Hypertension - Resume home dose of Norvasc 10 mg daily and Cozaar 100 mg daily Hypothyroidism -Continue patient's home dose of Synthroid 50 g daily -TSH okay Dyslipidemia -Continue patient's home dose of statin therapy Pt Condition on Discharge: Good Discharge Disposition: Disch w/ Home Health Serv Discharge Time: > 30 minutes Discharge Instructions DIET: Follow Instructions for: Heart Healthy Diet Activities you can perform: Regular-No Restrictions Follow up Referrals: Neurology - 2 Weeks PCP Follow-up - 1 Week New Medications: Walker with Front Wheels (Walker with Front Wheels) 1 Mis Mis EA .ROUTE DIRECTED, #1 0 Refills Metoprolol Tartrate (Metoprolol Tartrate) 25 Mg Tab 25 MG PO Q12HR, #60 TAB Continued Medications: Amlodipine (Norvasc) 10 Mg Tab 10 MG PO DAILY for Blood Pressure Management, #30 TAB 0 Refills Levothyroxine (Synthroid) 50 Mcg Tab 50 MCG PO DAILY for Thyroid, #30 TAB 0 Refills Losartan (Cozaar) 100 Mg Tab 100 MG PO DAILY for Blood Pressure Management, #30 TAB 0 Refills Simvastatin (Zocor) 20 Mg Tab 20 MG PO DAILY for Cholesterol Management, #30 TAB 0 Refills Discontinued Medications: Baclofen (Baclofen) 10 Mg Tab 10 MG PO BID, TAB 0 Refills Zuleika Wiley MD Mar 29, 2017 09:35
[2017-03-29] MEDS: LOSARTAN 50 MG TAB PO SCH (09:42)
[2017-03-29] MEDS: PRAVASTATIN SOD 40 MG TAB PO SCH (09:42)
[2017-03-29] MEDS: METOPROLOL TARTRATE 25 MG TAB PO SCH (09:42)
[2017-03-29] MEDS ORDERED: WALKER WHEELS/F1 MIS (09:55)
== END 2017-03-29 13:00 | disposition home health service (06) | DRG 274 ==
LOC: NEPE 10:53 → NEDA 13:48 → OBSVTOIN 16:02 → N04A 17:20 → HCPC 03-27 17:39 → HCIS 03-27 17:57 → HCPC 03-27 18:16
PROVIDERS: ADMIT Family Medicine; ATTEND Family Medicine
PROC: 0HQ0XZZ Repair Scalp Skin, External Approach (ICD-10-PCS; 2017-03-24)
PROC: 4A023N7 Measurement of Cardiac Sampling and Pressure, Left Heart, Percutaneous Approach (ICD-10-PCS; 2017-03-26)
PROC: B2111ZZ Fluoroscopy of Multiple Coronary Arteries using Low Osmolar Contrast (ICD-10-PCS; 2017-03-26)
PROC: 02K83ZZ Map Conduction Mechanism, Percutaneous Approach (ICD-10-PCS; 2017-03-27)
PROC: 4A0234Z Measurement of Cardiac Electrical Activity, Percutaneous Approach (ICD-10-PCS; 2017-03-27)
PROC: 5A2204Z Restoration of Cardiac Rhythm, Single (ICD-10-PCS; 2017-03-27)
PROC: 02583ZZ Destruction of Conduction Mechanism, Percutaneous Approach (ICD-10-PCS; principal; 2017-03-27 14:30)
DX: I47.1 Supraventricular tachycardia (principal); I44.7 Left bundle-branch block, unspecified; I10 Essential (primary) hypertension; R55 Syncope and collapse; J45.909 Unspecified asthma, uncomplicated; S06.0X1A Concussion with loss of consciousness of 30 minutes or less, initial encounter; S01.01XA Laceration without foreign body of scalp, initial encounter; I25.10 Atherosclerotic heart disease of native coronary artery without angina pectoris; K21.9 Gastro-esophageal reflux disease without esophagitis; E03.9 Hypothyroidism, unspecified; E87.6 Hypokalemia; E78.5 Hyperlipidemia, unspecified; M19.90 Unspecified osteoarthritis, unspecified site; M81.0 Age-related osteoporosis without current pathological fracture; W18.30XA Fall on same level, unspecified, initial encounter; Y92.512 Supermarket, store or market as the place of occurrence of the external cause; Z85.3 Personal history of malignant neoplasm of breast; Z88.5 Allergy status to narcotic agent; Z88.8 Allergy status to other drugs, medicaments and biological substances; Z91.040 Latex allergy status
CPT/HCPCS: 70450; 71010; 72125; 80048; 80053; 82550; 82552; 82948; 83735; 84443; 84484; 85025; 85610; 92960; 93005; 93306; 93458; 93613; 93623; 93653; 99152; 99153; C1730; C1732; C1769; C1893; C2630; J0153; J0282; J1644; J2250; J3010; J3475; J7030; J7050; J7060; Q9967